=== PATIENT | female | born 1935 | race Caucasian/White ===

== ENCOUNTER → 2019-09-11 14:39 | Outpatient (BNVA) | payer MEDICARE, SELFPAY | PROVIDERS: PCP Specialist; Visit Provider Specialist | DX: S72.091A Other fracture of head and neck of right femur, initial encounter for closed fracture (principal); X58.XXXA Exposure to other specified factors, initial encounter | CPT/HCPCS: 73502 ==

== ENCOUNTER 2022-08-14 08:24 | Inpatient (IN) | payer MEDICARE, MEDICAID, SELFPAY ==
[2022-08-14] VITALS (14 sets, daily range): BP systolic 114–132; BP diastolic 48–111; PULSE 81–136; RESP 16–23; TEMP 36.3–36.6; O2SAT 94–100
--- NOTE | 2022-08-14 08:28 | ECG_ITS ---
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: : 1935 Requested By: Shadia Galdamez Order Number: [id number] Dahlia MD: Scott Rock Measurements Intervals [place] Rate: 128 P: 0 [place]: 0 QRS: 35 QRSD: 104 T: -12 QT: 302 QTc: 441 Interpretive Statements Baseline artifact probable sinus tachycardia INCOMPLETE RIGHT BUNDLE BRANCH BLOCK [90+ ms QRS DURATION, TERMINAL R IN V1/V2, 40+ ms S IN I/aVL/V4/V5/V6] ST DEPRESSION [0.05+ mV ST DEPRESSION] Compared to ECG 07/05/2019 08:32:24 Incomplete right bundle-branch block now present ST (T wave) deviation now present Heart rate increased from 109 Electronically Signed On 08-14-2022 15:09:13 SAMPLE FINISHER by Scott Rock [id number]
--- NOTE | 2022-08-14 08:29 | XRR_ITS ---
PROCEDURE INFORMATION: Exam: XR Chest Exam date and time: 08/14/2022 8:51 AM Age: 87 years old Clinical indication: Shortness of breath; Additional info: SOB TECHNIQUE: Imaging protocol: Radiologic exam of the chest. Views: 1 view. COMPARISON: CR XR chest 1V [id number] 07/04/2019 9:03 PM FINDINGS: Lungs: There are bilateral pulmonary interstitial changes which are most likely chronic fibrosis. There is no focal airspace consolidation. Pleural spaces: Unremarkable. No pleural effusion. No pneumothorax. Heart/Mediastinum: Heart is not enlarged. The mitral annulus is calcified. Bones/joints: Unremarkable. XR/XR chest 1V portable [id number] IMPRESSION: Pulmonary fibrosis. No acute abnormality.
--- NOTE | 2022-08-14 08:30 | W.ED.SOB ---
HPI - SOB/Dyspnea General: Chief Complaint: Shortness of Breath/Dyspnea Stated Complaint: SOB Time Seen by Provider: 08/14/22 08:24 Source: patient and EMS Mode of arrival: EMS Limitations: no limitations History of Present Illness: HPI Narrative: 87-year-old female is [facility] with shortness of breath cough and fever. Patient overnight at the [facility] had a temperature 100.5 he also states that her room air sats were in the 70s she is on 3 L currently she states she does not wear oxygen at baseline she does have a productive cough and rales here afebrile here she denies any pain Associated symptoms: Reports fever(s); Deny abdominal pain, chest pain, nausea or vomiting Review of Systems Const: Reports: fever(s) Eyes: Denies: blurry vision or eye discomfort ENMT: Denies: throat pain or dental pain Card: Denies: chest pain Resp: Reports: dyspnea and productive cough GI: Denies: abdominal pain, nausea, vomiting or diarrhea : Denies: dysuria Musc: Denies: neck pain or back pain Skin/Breast: Denies: rash Neuro: Denies: headache(s) Psych: Denies: depression Pal/Lymph: Denies: easy bruising All/Imm: Denies: urticaria PFSH ED PFSH: Social History Smoking and tobacco status: never smoked Alcohol intake: never Physical Exam Const: COMMON NORMALS: patient oriented x3 GENERAL APPEARANCE: ill appearing HENMT: COMMON NORMALS: normocephalic and atraumatic HEAD & SCALP: normocephalic and atraumatic Eye: COMMON NORMALS: Equal, round and reactive pupils present and EOMs intact bilaterally PUPIL: Yes Equal, round and reactive pupils present Neck/C-Spine: COMMON NORMALS: full ROM and supple Chest: COMMONS NORMALS: normal inspection of the chest and normal palpation of entire chest wall Resp: COMMON NORMALS: No retractions and No use of accessory muscles AUSCULTATION: rales Cardio: COMMON NORMALS: regular rate, regular rhythm and No murmurs present (Cardio) RATE: regular rate RHYTHM: regular rhythm GI: COMMON NORMALS: Normal to inspection, nondistended, normoactive bowel sounds present, Soft to palpation, non-tender and no masses PALPATION: Yes Soft to palpation Extremity: COMMON NORMALS: normal to inspection and full ROM Neuro: COMMON NORMALS: patient oriented x3, moves all extremities and no focal motor deficits Psych: COMMON NORMALS: mental status grossly normal, Normal thought process present and cooperative THOUGHT PROCESS: Normal thought process present Skin: COMMON NORMALS: no rashes or lesions noted and no wounds GENERAL SKIN EXAM: no rashes or lesions noted Course Vital Signs: Vital signs: Vital Signs Temperature 97.4 F L 08/14/22 08:24 Pulse Rate 119 H 08/14/22 09:30 Respiratory Rate 22 H 08/14/22 09:12 Blood Pressure 124/68 08/14/22 09:12 Pulse Oximetry 98 08/14/22 09:30 Oxygen Delivery Me thod 08/14/22 09:30 Oxygen Flow Rate 3 08/14/22 09:30 MDM - SOB/Dyspnea Medical Decision Making Patient presents with cough fever hypoxia likely pneumonia patient started on IV antibiotics patient is also A. fib with RVR is currently on a Cardizem drip her blood pressures been normal spoke to the hospitalist and will admit at this time. Lab Data 08/14/22 09:30 08/14/22 09:30 Labs/Radiology: Radiology Impressions Chest X-Ray 08/14/22 08:29 IMPRESSION: Pulmonary fibrosis. No acute abnormality. Laboratory Results WBC 21.9 10^3/uL (4.0-10.0) H 08/14/22 09:30 RBC 5.42 10^6/uL (4.1-5.3) H 08/14/22 09:30 Hgb 11.9 g/dL (11.5-15.3) 08/14/22 09:30 Hct 41.3 % (37.0-47.0) 08/14/22 09:30 MCV 76.2 fl (81-99) L 08/14/22 09:30 MCH 22.0 pg (28.0-34.0) L 08/14/22 09:30 MCHC 28.8 g/dL (30.0-36.0) L 08/14/22 09:30 RDW 16.9 % (12.1-15.1) H 08/14/22 09:30 Plt Count 382 10^3/cmm (130-400) 08/14/22 09:30 MPV 11.0 fL (7.4-10.4) H 08/14/22 09:30 Neut % (Auto) 86.4 % 08/14/22 09:30 Lymph % (Auto) 7.8 % 08/14/22 09:30 Fergus % (Auto) 3.9 % 08/14/22 09:30 Eos % (Auto) 0.5 % 08/14/22 09:30 Baso % (Auto) 0.3 % 08/14/22 09:30 Neut # (Auto) 18.94 10^3/uL (1.8-7.7) H 08/14/22 09:30 Lymph # (Auto) 1.7 10^3/uL (0.8-4.8) 08/14/22 09:30 Fergus # (Auto) 0.9 10^3/uL (0.2-0.9) 08/14/22 09:30 Eos # (Auto) 0.1 10^3/uL (0.0-0.8) 08/14/22 09:30 Baso # (Auto) 0.1 10^3/uL (0.0-0.1) 08/14/22 09:30 Nucleated RBC % (auto) 0 % 08/14/22 09:30 Nucleated RBCs # 0.0 /100WBC 08/14/22 09:30 D-Dimer 4.99 ug/mIFEU (0-0.59) H 08/14/22 09:30 Specimen Type Arterial 08/14/22 08:46 Sample Site Radial, left 08/14/22 08:46 ABG pH 7.42 (7.35-7.45) 08/14/22 08:46 ABG pCO2 35.6 mmHg (35-45) 08/14/22 08:46 ABG pO2 87.7 mmHg (80.0-100.0) 08/14/22 08:46 ABG HCO3 23.0 mmol/L (22-26) 08/14/22 08:46 ABG Base Excess -1.2 mmol/L (-2.0-2.0) 08/14/22 08:46 Shane Test Pos 08/14/22 08:46 Hematocrit 34.8 % (37-47) L 08/14/22 08:46 Hgb O2 Saturation 96.3 % (95-100) 08/14/22 08:46 Carboxyhemoglobin 1.0 %THgb (0.4-20.1) 08/14/22 08:46 Methemoglobin 0.6 % (0.4-1.5) 08/14/22 08:46 Total Hemoglobin 11.4 g/dL (12-16) L 08/14/22 08:46 O2 Delivery Device Nc 08/14/22 08:46 O2 Liters/Min 2.0 % 08/14/22 08:46 FiO2 28.0 % 08/14/22 08:46 Buttermaker Continuous Churn ID Cak 08/14/22 08:46 Sodium 135 mmol/L (136-145) L 08/14/22 09:30 Potassium 3.5 mmol/L (3.5-5.1) 08/14/22 09:30 Chloride 97 mmol/L (98-107) L 08/14/22 09:30 Carbon Dioxide 22 mmol/L (22-29) 08/14/22 09:30 Anion Gap 19.5 (5-19) H 08/14/22 09:30 BUN 30 mg/dL (8-23) H 08/14/22 09:30 Creatinine 0.8 mg/dL (0.5-0.9) 08/14/22 09:30 GFR Calculation Not Reportable 08/14/22 09:30 Glucose 121 mg/dL (65-115) H 08/14/22 09:30 Calculated Osmolality 287 mOsm/kg (285-295) 08/14/22 09:30 Lactic Acid 1.8 mmol/L (0.5-2.2) 08/14/22 09:30 Calcium 9.2 mg/dL (8.5-10.5) 08/14/22 09:30 Total Bilirubin 0.5 mg/dL (0.15-1.2) 08/14/22 09:30 AST 25 U/L (0-32) 08/14/22 09:30 ALT 16 U/L (0-33) 08/14/22 09:30 Alkaline Phosphatase 151 U/L (35-105) H 08/14/22 09:30 Troponin T Baseline 27 ng/L (0-10) H 08/14/22 09:30 NT-Pro-B Natriuret Pep 1153 pg/mL (0-450) H 08/14/22 09:30 Total Protein 8.1 g/dL (6.6-8.7) 08/14/22 09:30 Albumin 3.1 g/dL (3.5-5.2) L 12 09:30 Globulin 5.0 g/dL (1.3-4.6) H 12 09:30 Coronavirus 229E (PCR) Not detected (NOT DETECT) 08/14/22 08:35 Influenza Type A Ag negative (Negative) 08/14/22 08:35 Influenza Type B Ag negative (Negative) 08/14/22 08:35 SARS-CoV-2 (PCR) Not detected (NOT DETECT) 08/14/22 08:35 EKG Data EKG 1: I personally reviewed and interpreted this EKG as follows: EKG Interpretation Date: 08/14/22 EKG interpretation time: 08:35 Interpretation: atrial flutter hr [address] or t wave abnormalities qrs 104 qtc 378 Critical Care Time Critical Care Time: Critical Care Time: Yes Total Critical Care Time: 40 Attestation: The high probability of a clinically significant, sudden or life threatening deterioration of the patient's resp/cv system(s) required my full and direct attention, intervention and personal management. The critical care time is as shown. This time is in addition to time spent performing any reported procedures but includes the following: [x] Data and vital sign review and interpretation [x] Patient assessment, examination and intervention [x] Documentation [x] Medication orders and management Discharge Plan Discharge Patient Disposition: Admitted As Inpatient Admit Provider: Filiberto Galvan Clinical Impression: Community acquired pneumonia, Atrial fibrillation with RVR Condition: Stable Coding Level of Care Code ED Quality Control Expert for Chg Fwd Exam Comprehensive
[2022-08-14] MEDS: ipratropium-albuterol 3 mL Neb INHALATION (08:47)
[2022-08-14 08:57] LABS: ABG PCO2 35.6 mmHg (35-45); ABG PH Result 7.42 (7.35-7.45); Arterial Blood Gas Hematocrit 34.8 % (37-47); Base Excess ABG -1.2 mmol/L (-2.0-2.0); Blood Gas Allen Test Pos; Blood Gas Operator Identificat CAK; Blood Gas Sample Site Radial, left; Blood Gas Sample Type Arterial; HGB O2 Sat 96.3 % (95-100); Methemoglobin 0.6 % (0.4-1.5); Oxygen Device NC; PO2 ABG 87.7 mmHg (80.0-100.0); Total Hemoglobin 11.4 g/dL (12-16)
[2022-08-14] MEDS: sodium chloride 0.9% 1,000 ML 999 ML IV (09:30)
[2022-08-14] MEDS: dilTIAZem 5 mg/mL SDV 5 mL 10 MG IVP (09:31)
[2022-08-14 09:47] LABS: Basophils # 0.1 10^3/uL (0.0-0.1); Basophils % 0.3 %; Eosinophils # 0.1 10^3/uL (0.0-0.8); Eosinophils % 0.5 %; Hematocrit 41.3 % (37.0-47.0); Hemoglobin 11.9 g/dL (11.5-15.3); Lymphocytes # 1.7 10^3/uL (0.8-4.8); Lymphocytes % 7.8 %; Mean Corpuscular HGB Conc 28.8 g/dL (30.0-36.0); Mean Corpuscular Volume 76.2 fl (81-99); Monocytes # 0.9 10^3/uL (0.2-0.9); Monocytes % 3.9 %; Neutrophils # 18.94 10^3/uL (1.8-7.7); Neutrophils % 86.4 %; Nucleated Red Blood Cells % 0 %; Platelet Count 382 10^3/cmm (130-400); Red Blood Count 5.42 10^6/uL (4.1-5.3); Red Cell Distribution Width 16.9 % (12.1-15.1); White Blood Count 21.9 10^3/uL (4.0-10.0)
[2022-08-14] MEDS: dilTIAZem 100 MG in sodium chloride 0.9% (add-van) 100 ML 10 MG IV (09:54)
[2022-08-14] MEDS: cefTRIAXone 1,000 MG in sodium chloride 0.9% (plus) 50 ML 100 MG IV (10:14)
[2022-08-14 10:27] LABS: Lactic Sepsis W/Reflex 1.8 mmol/L (0.5-2.2)
[2022-08-14 10:30] LABS: Alanine Aminotransferase 16 U/L (0-33); Albumin Level 3.1 g/dL (3.5-5.2); Alkaline Phosphatase 151 U/L (35-105); Anion Gap 19.5 (5-19); Aspartate Amino Transferase 25 U/L (0-32); Blood Urea Nitrogen 30 mg/dL (8-23); Calcium 9.2 mg/dL (8.5-10.5); Carbon Dioxide 22 mmol/L (22-29); Chloride 97 mmol/L (98-107); Glucose 121 mg/dL (65-115); NT Pro B Type Natriuretic Pept 1153 pg/mL (0-450); Osmolality Calculated 287 mOsm/kg (285-295); Potassium 3.5 mmol/L (3.5-5.1); Sodium 135 mmol/L (136-145); Total Bilirubin 0.5 mg/dL (0.15-1.2); Total Protein 8.1 g/dL (6.6-8.7)
[2022-08-14] MEDS: azithromycin 500 MG in sodium chloride 0.9% 250 ML 250 MG IV (10:44)
[2022-08-14 10:53] LABS: Influenza A by IFA negative (Negative); Influenza B by IFA negative (Negative)
[2022-08-14 11:12] LABS: Adenovirus Not Detected (NOT DETECT); Chlamydia Pneumoniae Not Detected (NOT DETECT); Coronavirus 229E,HKU1,NL63,OC4 Not Detected (NOT DETECT); Human Metapneumovirus Not Detected (NOT DETECT); Human Rhinovirus/Enterovirus Not Detected (NOT DETECT); Influenza A Not Detected (NOT DETECT); Influenza A H1 Not Detected (NOT DETECT); Influenza A H1-2009 Not Detected (NOT DETECT); Influenza A H3 Not Detected (NOT DETECT); Influenza B Not Detected (NOT DETECT); Mycoplasma Pneumoniae Not Detected (NOT DETECT); Parainfluenza Virus Type 1 Not Detected (NOT DETECT); Parainfluenza Virus Type 2 Not Detected (NOT DETECT); Parainfluenza Virus Type 3 Not Detected (NOT DETECT); Parainfluenza Virus Type 4 Not Detected (NOT DETECT); Respiratory Syncytial Virus A Not Detected (NOT DETECT); Respiratory Syncytial Virus B Not Detected (NOT DETECT); SARS-COV-2 Not Detected (NOT DETECT)
--- NOTE | 2022-08-14 11:15 | ECG_ITS ---
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
[2022-08-14 11:32] LABS: D Dimer 4.99 ug/mIFEU (0-0.59); Troponin(5th) Baseline 27 ng/L (0-10)
--- NOTE | 2022-08-14 11:35 | CTR_ITS ---
PROCEDURE INFORMATION: Exam: CTA Chest With Contrast Exam date and time: 08/14/2022 12:55 PM Age: 87 years old Clinical indication: Shortness of breath; Additional info: SOB TECHNIQUE: Imaging protocol: Computed tomographic angiography of the chest with contrast. 3D rendering (Not supervised by radiologist): MIP and/or 3D reconstructed images were created by the technologist. Radiation optimization: All CT scans at this facility use at least one of these dose optimization techniques: automated exposure control; mA and/or kV adjustment per patient size (includes targeted exams where dose is matched to clinical indication); or iterative reconstruction. Contrast material: OMNI 350; Contrast volume: 54 ml; Contrast route: INTRAVENOUS (IV); COMPARISON: CR (CHEST, ) 08/14/2022 8:51 AM RADIATION DOSE METRICS: Total DLP (mGy-cm): 180.19 FINDINGS: Pulmonary arteries: Pulmonary vasculature is adequately opacified without filling defects or other evidence of acute pulmonary embolism. Aorta: Scattered atherosclerotic changes of the thoracic aorta. No aortic aneurysm. Lungs: Diffuse calcification of the tracheobronchial tree likely longstanding. Pleural spaces: Small bilateral pleural effusions with adjacent passive atelectasis containing numerous punctate calcifications the probably longstanding. Additional subpleural consolidative opacities within the mid to upper lung zones and patchy bronchiolitis likely infectious in nature. Heart: Heart is mildly enlarged. Mild calcification of the coronary arteries. Diffuse calcification of mitral annulus. Lymph nodes: Mild indistinct mediastinal lymphadenopathy, nonspecific. Liver: 7 cm hypodense liver mass near the liver dome difficult to further assess. Bones/joints: Solitary large gallstone within the gallbladder that appears mildly distended bony partially visualized. Accentuated kyphotic curvature of the thoracic spine with chronic compression fracture T3 vertebral body. Soft tissues: Unremarkable. CT/CT angio chest PE protcl [id number] IMPRESSION: 1. Negative CT angiogram of the chest. No evidence of acute pulmonary embolism. 2. Patchy bronchi bronchiolitis mid to upper lung zones superimposed on scattered subpleural consolidated opacities possibly inflammatory in nature. 3. Small bibasilar pleural effusions with adjacent passive atelectasis and pulmonary calcifications. 4. 7 cm liver mass difficult to further assess. Recommend follow-up nonemergent CT examination of the liver and abdominal ultrasound for further assessment. 5. Cholelithiasis with mild gallbladder distention which could also be further assessed on ultrasound exam.
--- NOTE | 2022-08-14 11:35 | CTR_ITS ---
PROCEDURE INFORMATION: Exam: CT Head Without Contrast Exam date and time: 08/14/2022 12:52 PM Age: 87 years old Clinical indication: Altered mental status/memory loss; Confusion or disorientation; Additional info: AMS TECHNIQUE: Imaging protocol: Computed tomography of the head without contrast. Radiation optimization: All CT scans at this facility use at least one of these dose optimization techniques: automated exposure control; mA and/or kV adjustment per patient size (includes targeted exams where dose is matched to clinical indication); or iterative reconstruction. COMPARISON: No relevant prior studies available. RADIATION DOSE METRICS: Total DLP (mGy-cm): 1011.28 FINDINGS: Brain: No intracranial hemorrhage, edema or other acute abnormality is seen in the brain. There is generalized chronic atrophy with prominence of the ventricles and sulci. There is a 2 cm dural-based mass over the right frontal lobe which is consistent with a benign meningioma. No significant mass effect or midline shift. Cerebral ventricles: The ventricles are prominent consistent with chronic atrophy. Paranasal sinuses: There is mucosal thickening and a small amount of fluid in the right maxillary sinus consistent with sinusitis. Mastoid air cells: Visualized mastoid air cells are well aerated. Bones/joints: Unremarkable. No acute fracture. Soft tissues: Unremarkable. CT/CT head wo con* [id number] IMPRESSION: No acute intracranial abnormality.
[2022-08-14 11:40] LABS: Troponin 5 2HR 23.58 ng/L (0-10)
[2022-08-14 11:44] LABS: Troponin 5 2HR Delta -3.42 ABS# (0-10)
--- NOTE | 2022-08-14 11:58 | P.HP_ITS ---
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 Currently patient is alert to person, to place, not to time, history taking is a bit difficult as she is confused. Some of the history was obtained from the intermediate. According to patient she feels short of breath, she has a cough, she feels weak, poor appetite. According to intermediate she is a intermediate resident at [facility], she does not ambulate at baseline, she does not have significant medical problems, she has been at [facility] since April, she has been in her regular state of health, yesterday she had told nursing staff she was not feeling well, this morning she had hypoxia O2 sats in the mid 80s, with fevers as high as 100.4, complains of shortness of breath, increased confusion. In the emergency room she was found to have A. fib with RVR, leukocytosis, concerns for pneumonia, hospitalist team was called for admission. Currently no facial droop no slurring of her words, she can follow some commands and squeeze my fingers wiggling her toes, when I asked her about the right eyelid, she tells me she has had this since cataract surgery. Review of Systems Narrative: Confusion Const: Reports: fever(s), fatigue and malaise Card: Denies: chest pain Resp: Reports: dyspnea GI: Denies: abdominal pain Neuro: Reports: confusion Medications/Allergies Home Medications Medication Instructions Recorded Confirmed Last Taken Type No Known Home Medications 09/11/19 08/14/22 Unknown History Allergies Allergy/AdvReac Type Severity Reaction Status Date / Time Penicillins Allergy Unknown Verified 09/11/19 14:35 PFSH Acute PFSH: Medical History (Updated 08/14/22 @ 12:07 by Filiberto Galvan MD) No pertinent past medical history Surgical History (Updated 08/14/22 @ 12:04 by Filiberto Galvan MD) History of cataract surgery Family History (Updated 08/14/22 @ 12:04 by Filiberto Galvan MD) Other CAD (coronary artery disease) Social History (Updated 08/14/22 @ 12:04 by Filiberto Galvan MD) Smoking and tobacco status: never smoked Alcohol intake: never Substance/Drug Use: never Vitals/I&O/Wt Last Vital Signs Temp 97.4 F L 08/14/22 08:24 Pulse 119 H 08/14/22 09:30 Resp 22 H 08/14/22 09:12 BP 124/68 08/14/22 09:12 Pulse Ox 98 08/14/22 09:30 O2 Del Method 08/14/22 09:30 O2 Flow Rate 3 08/14/22 09:30 08/13/22 08/14/22 08/14/22 22:59 06:59 14:59 Intake Total 50 / 50 Balance 50 / 50 Weight last 48 hrs Weight 56.699 kg Physical Exam Const: COMMON NORMALS: no acute distress EXAM LIMITATIONS: altered mental status ORIENTATION/CONSCIOUSNESS: Yes awake, Yes oriented to person, Yes oriented to place and Yes confused; not oriented to time HENMT: COMMON NORMALS: normocephalic HEAD & SCALP: normocephalic Eye: OTHER: Right eyelid droop Bilateral pupils equal round reactive to light Neck/C-Spine: COMMON NORMALS: no JVD Lymph: LYMPHATIC: no lymphadenopathy noted Resp: COMMON NORMALS: normal respiratory effort, No retractions, No use of accessory muscles and clear to auscultation bilaterally AUSCULTATION: crackles and wheezes Cardio: COMMON NORMALS: regular rate, regular rhythm, S1 normal heart sound present and S2 normal heart sound present RATE: regular rate RHYTHM: regular rhythm HEART SOUNDS: S1 normal heart sound present and S2 normal heart sound present GI: COMMON NORMALS: Normal to inspection, nondistended, normoactive bowel sounds present, Soft to palpation, non-tender, no masses and no bruits PALPATION: Yes Soft to palpation and Yes No hepatosplenomegaly present Extremity: NARRATIVE EXTREMITY EXAM: Bilateral calf swelling, tenderness on exam, 1+ pitting edema Neuro: OTHER: Alert to person, to place, not to time, can follow some commands, such as squeezing my fingers, wiggling her toes, other neurologic testing is difficult, is able to smile for me, no facial droop Psych: COMMON NORMALS: mental status grossly normal Data 08/14/22 09:30 08/14/22 09:30 Micro: Microbiology 08/14/22 09:40 Blood Culture - Preliminary Blood SPECIMEN COLLECTED 08/14/22 09:30 Blood Culture - Preliminary Blood SPECIMEN COLLECTED A&P Assessment and plan (1) Atrial fibrillation with RVR: (2) NSTEMI (non-ST elevated myocardial infarction): (3) Acute respiratory failure with hypoxia: (4) Community acquired pneumonia: (5) Acute encephalopathy: (6) Protein calorie malnutrition: (7) Physical deconditioning: Plan Acute hypoxic respiratory failure -Likely related to [facility] pneumonia given leukocytosis, however CRP Pro-Maikel pending -Does have pulmonary fibrosis on chest x-ray, possible exacerbation but no history of this in the past -D-dimer quite elevated at 4.99, complains of calf and calf swelling we will do CT angiogram of the chest to rule out pulmonary embolism -Some component related to A. fib with VR, possible fluid overload Plan -Admit to CSU -Monitor respiratory status -Budesonide, ipratropium -Sputum cultures, blood cultures, urine bacterial antigen -Incentive spirometer, flutter valve -For A. fib with RVR, Cardizem drip with oral Cardizem -Cardiac echo -Heparin drip -Protonix, Carafate -Will consider Lasix based on clinical progress -Heparin for DVT prophylaxis -According to intermediate patient is a DNR, it is difficult for me to get an exact answer for her about her intubation mechanical ventilation status, for now as I do not have a clear answer, as patient is confused, will put on limited resuscitation Acute encephalopathy, TSH, mag, CT of the head A. fib RVR, as above NSTEMI serial EKGs serial troponins telemetry monitoring Acute acquired pneumonia, as above Pulmonary fibrosis seen on chest x-ray, will see with CT angiogram of the chest shows Attestations Medical Necessity Statement*: Patient requires hospitalization, inpatient, greater than 2 midnights for A. fib with RVR, acute hypoxic respiratory failure, acute encephalopathy, NSTEMI Coding Level of Care Code Acute Supervisor Electronic Testing for [facility] Fw Diagnoses Atrial fibrillation with RVR I48.91 NSTEMI (non-ST elevated myocardial infarction) I21.4 Acute respiratory failure with hypoxia J96.01 Community acquired pneumonia J18.9 Acute encephalopathy G93.40 Protein calorie malnutrition E46 Physical deconditioning R53.81
[2022-08-14 12:02] LABS: C Reactive Protein 250.5 mg/L (0.0-4.9)
[2022-08-14 12:06] LABS: Procalcitonin 0.69 ng/mL (0-0.5)
--- NOTE | 2022-08-14 12:21 | USR_ITS ---
PROCEDURE INFORMATION: Exam: US Duplex Lower Extremity Veins, Bilateral Exam date and time: 08/14/2022 8:44 PM Age: 87 years old Clinical indication: Swelling (edema) of limb; Lower extremity, bilateral; Additional info: Dvt TECHNIQUE: Imaging protocol: Real-time Duplex ultrasound of the bilateral extremities with 2-D joshi scale, color Doppler flow and spectral waveform analysis with image documentation. Complete exam focused on the bilateral lower extremity veins. COMPARISON: OT Hip 2-3v RIGHT wwo Pelv* [id number] 07/05/2019 6:06 PM FINDINGS: Right deep veins: Unremarkable. The common femoral, femoral, proximal profunda femoral and popliteal veins are patent without thrombus. Normal Doppler waveforms. Normal compressibility and/or augmentation response. Right superficial veins: Saphenofemoral junction is patent without thrombus. Left deep veins: Unremarkable. The common femoral, femoral, proximal profunda femoral and popliteal veins are patent without thrombus. Normal Doppler waveforms. Normal compressibility and/or augmentation response. Left superficial veins: Saphenofemoral junction is patent without thrombus. Soft tissues: Unremarkable. US/[place] [id number] IMPRESSION: No evidence of deep vein thrombosis.
[2022-08-14 12:34] LABS: INR 1.31 (0.8-1.2)
--- NOTE | 2022-08-14 12:38 | ECG_ITS ---
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
[2022-08-14 12:42] LABS: Lactic Sepsis W/Reflex 1.6 mmol/L (0.5-2.2); Magnesium 1.8 mg/dL (1.7-2.3)
[2022-08-14] MEDS: iohexol 350 mg/mL 500 mL Btl (per mL) IV (13:08)
[2022-08-14 13:09] LABS: Thyroid Stimulating Hormone 0.04 uIU/mL (0.27-4.20)
[2022-08-14 13:12] LABS: Estmated Average Glucose 100; Hemoglobin A1C 5.1 % (4.0-6.0)
--- NOTE | 2022-08-14 13:50 | USR_ITS ---
PROCEDURE INFORMATION: Exam: US Abdomen Complete Exam date and time: 08/14/2022 9:06 PM Age: 87 years old Clinical indication: Abnormal findings; Abnormal radiologic finding of the abdomen; Radiologic exam and body structure: CT chest; Additional info: Liver mass, galbldder stones, cholethiasis TECHNIQUE: Imaging protocol: Real-time ultrasound of the abdomen with image documentation. Complete exam. COMPARISON: CT angio chest PE protcl [id number] 08/14/2022 12:55 PM FINDINGS: Liver: There is limited visualization of the liver due to body habitus and bowel gas. There is a 4.9 x 4.5 x 4.3 cm cyst in the liver. Location is indeterminate based on these images. Gallbladder: There is an echogenic focus at the gallbladder neck suggesting a stone. Sonographic Hammonds sign is negative. The gallbladder is incompletely distended. There is no wall thickening. Biliary ducts: The common bile duct is nondilated measuring 3 mm Pancreas: The pancreas is obscured by bowel gas. Right kidney: The right kidney is normal. No hydronephrosis. Left kidney: The left kidney is unremarkable but poorly visualized. No hydronephrosis. Spleen: The spleen is normal in size. Aorta: Obscured by bowel gas. Inferior vena cava: Obscured by bowel gas. Portal venous: The main portal vein is patent. US/US abdomen complete* [id number] IMPRESSION: 1. Cholelithiasis without other evidence of cholecystitis. 2. Limited exam as above.
[2022-08-14 14:26] LABS: Gamma Glutamyl Transferase 12 U/L (5-36)
[2022-08-14 14:27] LABS: Lipase 8 U/L (13-60)
[2022-08-14 14:33] LABS: Free T4 Free Thyroxine 1.06 ng/dL (0.82-1.77); T3 Free 1.6 PG/ML (2.0-4.4)
[2022-08-14] MEDS: dilTIAZem 30 mg Tablet PO ×2 (15:09→19:32)
[2022-08-14] MEDS: pantoprazole 40 mg SDV IVP (15:09)
[2022-08-14] MEDS: meropenem 1,000 MG in sodium chloride 0.9% (plus) 50 ML 100 MG IV ×2 (15:10→21:43)
[2022-08-14] MEDS: FUROsemide 10 mg/mL SDV 2mL 20 MG IVP (15:11)
[2022-08-14 16:35] LABS: Partial Thromboplastin Time 40.4 SECONDS (23.9-36.7)
[2022-08-14 16:43] LABS: Troponin 5 6HR 27.03 ng/L (0-10)
[2022-08-14 16:47] LABS: Troponin 5 6HR Delta 0.03 ng/L (0-12)
--- NOTE | 2022-08-14 16:59 | ECG_ITS ---
[facility] Test Date: 2022-08-14 Pat Name: Lea Velásquez Department: Room: 112 Gender: Female Manager Client Support: : 1935 Requested By: Filiberto Galvan Order Number: [id number] Dahlia MD: Kyle Rico M.D. Measurements Intervals [place] Rate: 98 P: 47 ME: 184 QRS: 16 QRSD: 84 T: 8 QT: 345 QTc: 441 Interpretive Statements SINUS RHYTHM WITH OCCASIONAL VENTRICULAR PREMATURE COMPLEXES Compared to ECG 08/14/2022 12:38:36 Ventricular premature complex(es) now present Sinus tachycardia no longer present Electronically Signed On 08-15-2022 6:21:26 PHYSICS TECHNICIAN by Kyle Rico M.D. [id number]
[2022-08-14] MEDS: heparin 5,000 unit/mL INJ 1 mL IV (17:44)
[2022-08-14] MEDS: heparin drip 25,000 UNIT/500 ML PREMIX 16 UNIT IV (17:44)
[2022-08-15] VITALS (143 sets, daily range): BP systolic 110–131; BP diastolic 50–62; PULSE 75–110; RESP 15–40; TEMP 36.1–36.8; O2SAT 83–100
[2022-08-15] MEDS: dilTIAZem 30 mg Tablet PO ×4 (00:07→20:45)
[2022-08-15] MEDS: pantoprazole 40 mg SDV IVP (00:07)
[2022-08-15 00:27] LABS: Partial Thromboplastin Time 75.8 SECONDS (23.9-36.7)
[2022-08-15] MEDS: meropenem 1,000 MG in sodium chloride 0.9% (plus) 50 ML 100 MG IV ×3 (05:39→21:17)
--- NOTE | 2022-08-15 06:00 | USCV_ITS ---
Lea Velásquez Age: 87 Gender: F : 1935 Exam Date: 08/15/2022 11:11 Ordering Phys: Filiberto Galvan MD Technologist: [place] [facility] [place]: chf ex BP: 113 / 55 HR: 97 Rhythm: Sinus Technical Quality: Adequate MEASUREMENTS (Male / Female) Normal Values 2D ECHO LV Diastolic Diameter PLAX 2.9 cm 4.2 - 5.9 / 3.9 - 5.3 cm LV Systolic Diameter PLAX 2.4 cm IVS Diastolic Thickness 0.8 cm 0.6 - 1.0 / 0.6 - 0.9 cm IVS Systolic Thickness 1.1 cm LVPW Diastolic Thickness 0.8 cm 0.6 - 1.0 / 0.6 - 0.9 cm LVPW Systolic Thickness 1.1 cm LVOT Diameter 2.0 cm LV Ejection Fraction 2D Teich 26.7 % LV Ejection Fraction MOD 2C 74.9 % LV Ejection Fraction 2C AL 74.8 % LA Diameter 2.9 cm M-MODE Aortic Annulus Diameter 2.7 cm LA Ao Ratio MM 1.2 MV E Point Septal Separation 0.9 cm DOPPLER AV Peak Velocity 244.0 cm/s LVOT Peak Velocity 119.0 cm/s AV Area Cont Eq vti 1.9 cm squared AV Area Cont Eq pk 1.6 cm squared MV Area PHT 5.0 cm squared Mitral E to A Ratio 0.7 MV E' Velocity 59.0 cm/s Mitral E to MV E' Ratio 14.0 Mitral E to LV E' Lateral Ratio 10.6 Mitral E to LV E' Septal Ratio 20.7 TR Peak Velocity 343.0 cm/s TR Peak Gradient 47.1 mmHg TV Peak E Velocity 139.0 cm/s Right Atrial Pressure 3.0 mmHg Pulmonary Artery Systolic Pressu 50.1 mmHg RV Acceleration Time 0.1 s FINDINGS Left Ventricle Left ventricle is normal in size. LV systolic function is normal with EF of 60 to 65%. No regional wall motion abnormalities are seen. Grade 1 diastolic dysfunction. Right Ventricle Normal in size and function Right Atrium Normal in size Left Atrium Normal in size Mitral Valve Mitral valve is thickened. Mild mitral regurgitation. Aortic Valve Structurally normal aortic valve. Mild aortic stenosis with aortic valve area of 1.87 cm squared and mean gradient across aortic valve of 11 mmHg. No significant regurgitation Tricuspid Valve Mild tricuspid regurgitation. RVSP is 45 to 50 mmHg. This is consistent with moderate pulmonary hypertension Pulmonic Valve Not well-visualized Pericardium Normal Aorta Normal in size IVC Not well-visualized. CONCLUSIONS LV systolic function is normal with EF of 60 to 65%. Grade 1 diastolic dysfunction Mitral valve is thickened. Mild mitral regurgitation. Mild aortic stenosis with aortic valve area of 1.87 cm squared and mean gradient across aortic valve of 11 mmHg Mild tricuspid regurgitation. Moderate pulmonary hypertension. No comparison studies are available Kyle Rico MD (Electronically Signed) Final Date: 15 August 2022 20:20 S
[2022-08-15 06:21] LABS: Protein Urine 1+ (Negative); Specific Gravity, Urine 1.015 (1.005-1.030); Urine Appearance Clear (CLEAR); Urine Color Yellow (Yellow); pH Urine 5 (5-7)
[2022-08-15 06:22] LABS: Add Urine Microscopic? YES; Bilirubin Urine Neg (Negative); Blood Urine Neg (Negative); Glucose Urine UA Norm (Normal); Ketones Urine 1+ (Negative); Leukocyte Esterase Urine Negative (Negative); Nitrate Urine Negative (Negative); Urobilinogen Urine 1 mg/dL (Negative)
[2022-08-15 06:24] LABS: Add Urine Culture? No; Amorphous Sediment Urine 1+ /hpf
[2022-08-15 07:10] LABS: Basophils # 0.1 10^3/uL (0.0-0.1); Basophils % 0.3 %; Eosinophils % 0.2 %; Hematocrit 34.5 % (37.0-47.0); Lymphocytes # 1.1 10^3/uL (0.8-4.8); Lymphocytes % 6.2 %; Monocytes # 0.6 10^3/uL (0.2-0.9); Monocytes % 3.3 %; Neutrophils % 87.7 %; Nucleated Red Blood Cells % 0 %; Platelet Count 300 10^3/cmm (130-400); Red Blood Count 4.54 10^6/uL (4.1-5.3); White Blood Count 17.7 10^3/uL (4.0-10.0)
[2022-08-15 07:23] LABS: Partial Thromboplastin Time 46.6 SECONDS (23.9-36.7)
[2022-08-15 07:42] LABS: Anion Gap 15.9 (5-19); Blood Urea Nitrogen 27 mg/dL (8-23); Calcium 8.7 mg/dL (8.5-10.5); Carbon Dioxide 24 mmol/L (22-29); Chloride 105 mmol/L (98-107); Glucose 116 mg/dL (65-115); NT Pro B Type Natriuretic Pept 1308 pg/mL (0-450); Osmolality Calculated 298 mOsm/kg (285-295); Potassium 3.9 mmol/L (3.5-5.1); Sodium 141 mmol/L (136-145)
[2022-08-15] MEDS: budesonide 0.5 mg/2 mL Neb INHALATION ×2 (07:56→20:04)
[2022-08-15] MEDS: ipratropium-albuterol 3 mL Neb INHALATION (07:56)
[2022-08-15] MEDS: azithromycin 500 MG in sodium chloride 0.9% 250 ML 250 MG IV (09:22)
[2022-08-15] MEDS: docusate sodium 100 mg Capsule PO ×2 (09:22→18:34)
--- NOTE | 2022-08-15 12:10 | PC.CHAP ---
Pastoral Care Encounter/Spiritual Assessment Type of Contact [] Declined attendant campground visit [] Patient/Family/Request visit [] Outpatient visit [] Follow-up visit [] Physician referral [] Code/Alert [x] Routine visit [] Staff referral [] Actively dying [] Patient sleeping [] Family support [] [] Out of room [] Palliative care [] [] Receiving care in room [] Pre-surgical visit [] Trauma [] Long length of stay [] ICU visit [] Other: Relational/Emotional Strength [x] Patient feels connected with others/family/visitors/staff [] Distress [] Loneliness/isolation [] Abandonment Spirituality of Patient [x] Person of [place] [] Attends Jainism of their [place] [x] Believes in Prayer [] Reads Bible or Congregational materials [] There are Spiritual issues to be addressed Substation Designer Interventions [x] Prayer [] Active listening [] Non-anxious presence [] Spiritual/emotional support [] Crisis/trauma care [] Spiritual counseling [] Bereavement support [] Provided bereavement packet [] Provided Bible/devotional materials [] Provided toy/stuffed animal, coloring book to patient or family member [] Provided Communion [] Anointing/[place] [] Salvation [x] Completed spiritual assessment [] Other: Impact on Illness or Injury [] Angry [] Fearful [] Anxious [] Often cries [] Exhaustion [] Unable to work [] Unable to attend samaritan [] Unable to walk/stand [] Unable to read [] Unable to drive [] Unable to eat/drink [] Unable to sleep [] Unable to be with family [] Patient intubated [] Other: Summary Time spent with patient
[2022-08-15] MEDS: guaiFENesin 600 mg Tablet PO ×2 (14:28→18:34)
--- NOTE | 2022-08-15 14:49 | PM.PN ---
Subjective Subjective: Patient was seen and examined this morning, complaining of cough, currently has remained afebrile, saturating well on 4 L supplemental oxygen, in sinus rhythm. Medications: Medication Review Details: Generic Name Dose Route Start Last Admin Trade Name Freq PRN Reason Stop Dose Admin Albuterol/Ipratrop ium 3 ml 08/14/22 12:21 08/15/22 07:56 Ipratropium-Albu terol 3 Ml Neb INHALATION 3 ml Q4H PRN Administration SHORTNESS OF [place] TH Budesonide 0.5 mg 08/14/22 20:00 08/15/22 07:56 Budesonide 0.5 M g/2 Ml Neb INHALATION 0.5 mg BID.RESPIRATORY S CH Administration Diltiazem HCl 30 mg 08/14/22 13:00 08/15/22 14:28 Diltiazem 30 Mg Tablet PO 30 mg Q6H CHITO Administration Docusate Sodium 100 mg 08/14/22 18:00 08/15/22 09:22 Docusate Sodium 100 Mg Capsule PO 100 mg BID CHITO Administration Guaifenesin 600 mg 08/15/22 13:30 08/15/22 14:28 Guaifenesin 600 Mg Tablet PO 600 mg BID CHITO Administration Heparin Sodium (Po rcine) 0 unit 08/14/22 12:21 08/14/22 17:44 Heparin 5,000 Un it/Ml Inj 1 Ml IV 2,900 unit PRN PRN Administration Heparin weight-ba se protocol Protocol Heparin Sodium/Sod ium Chloride 25,000 unit in 50 0 mls @ 0 mls/hr 08/14/22 12:21 08/15/22 00:53 Heparin Drip IV 13.23 unit/kg/hr .Q0M CHITO 15 mls/hr Titration Protocol Per Protocol Azithromycin 500 m g/ Sodium 250 mls @ 250 mls /hr 08/15/22 10:00 08/15/22 10:30 Chloride IV Infused Q24H CHITO Infusion Protocol Meropenem 1,000 mg / Sodium 50 mls @ 100 mls/ hr 08/14/22 14:00 08/15/22 14:28 Chloride IV 100 mls/hr Q8H CHITO Administration Diltiazem HCl 50 m g/ Sodium 50 mls @ 0 mls/hr 08/14/22 14:15 08/14/22 22:31 Chloride IV 0 mg/hr .Q0M CHITO 0 mls/hr Titration Protocol Per Protocol Vitals/I&O/Wt Last Vital Signs Temp 97.8 F 08/15/22 11:55 Pulse 99 08/15/22 12:15 Resp 22 H 08/15/22 12:15 BP 131/62 08/15/22 12:15 Pulse Ox 98 08/15/22 12:10 O2 Del Method 08/15/22 08:05 O2 Flow Rate 4 08/15/22 08:05 08/14/22 08/15/22 08/15/22 22:59 06:59 14:59 Intake Total 1708.500 / 2007.500 164.4 / 2172.900 240 / 240 Balance 1708.500 / 2007.500 164.4 / 2172.900 240 / 240 Weight last 48 hrs Weight 56.699 kg Physical Exam HENMT: COMMON NORMALS: normocephalic and atraumatic HEAD & SCALP: normocephalic and atraumatic Eye: GENERAL EYE: appearance normal, both eyes and all related structures Resp: EFFORT & INSPECTION: Yes symmetric chest movement OTHER: Diminished air entry bilaterally, tachypneic, tachycardic, no supplemental oxygen requirement. Cardio: COMMON NORMALS: regular rate, regular rhythm, S1 normal heart sound present, S2 normal heart sound present, No gallops present (Cardio), No murmurs present (Cardio), No rub (Cardio) and Peripheral pulses 2+ throughout RATE: regular rate RHYTHM: regular rhythm HEART SOUNDS: S1 normal heart sound present and S2 normal heart sound present PERIPHERAL PULSES: Peripheral pulses 2+ throughout GI: COMMON NORMALS: Normal to inspection, nondistended, normoactive bowel sounds present, Soft to palpation, non-tender, No hepatosplenomegaly present and no masses AUSCULTATION: Yes normoactive bowel sounds PALPATION: Yes Soft to palpation and Yes No hepatosplenomegaly present RECTAL EXAM: deferred Extremity: COMMON NORMALS: no clubbing, cyanosis or edema and no pedal edema Data 08/15/22 06:50 08/15/22 06:50 Micro: Microbiology 08/14/22 09:30 Blood Culture - Preliminary Blood NEGATIVE TO DATE 08/14/22 09:40 Blood Culture - Preliminary Blood NEGATIVE TO DATE 08/14/22 17:20 Bacterial Antigens - Final Urine,Clean Catch A&P Assessment and plan (1) Atrial fibrillation with RVR: (2) NSTEMI (non-ST elevated myocardial infarction): (3) Acute respiratory failure with hypoxia: (4) Community acquired pneumonia: (5) Acute encephalopathy: (6) Protein calorie malnutrition: (7) Physical deconditioning: (8) Anemia: (9) Low TSH level: (10) Liver mass: (11) Cholelithiasis: Plan 87-year-old female with past medical history of chronic right eyelid drop, 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 Currently she is being managed for: Assessment: Newly diagnosed A. fib with RVR Community-acquired pneumonia Acute hypoxic respiratory failure secondary to pneumonia, A. fib with RVR Acute metabolic encephalopathy secondary to pneumonia hypoxia: Resolved NSTEMI PEM Severe physical deconditioning Low TSH with normal free T4, low free T3 7 cm liver mass Cholelithiasis Plan: CT head without contrast: No acute intracranial pathology CTA chest: Negative for pulmonary embolism,Patchy bronchi bronchiolitis mid to upper lung zones superimposed on scattered subpleural consolidated opacities possibly inflammatory in nature.Small bibasilar pleural effusions with adjacent passive atelectasis and pulmonary calcifications. CT abdomen and pelvis with contrast: Ultrasound abdomen:Cholelithiasis without other evidence of cholecystitis. Lower extremity Doppler vein negative for DVT Blood culture: Negative Urine bacterial antigen panel: Negative COVID PCR negative, influenza negative Sputum gram stain and culture pending MRCA PCR Patient was initially on Cardizem drip: Has been transitioned to p.o. Cardizem, currently in sinus rhythm, on heparin drip. Continue meropenem and azithromycin for now, will narrow antibiotic coverage as needed DuoNebs, Mucinex, Mucomyst, budesonide inhaler Continue with incentive spirometer and flutter valve Continue Protonix CODE STATUS: DNR/DNI Attestations Medical Necessity Statement*: Patient needs to in-hospital for management of pneumonia Time Spent in Patient Care: Greater than 35 minutes (>than 50% of time spent in counselling and/or direct pt care on unit). Coding Level of Care Code Acute Health Services Director for [facility] Fwd Diagnoses Atrial fibrillation with RVR I48.91 NSTEMI (non-ST elevated myocardial infarction) I21.4 Acute respiratory failure with hypoxia J96.01 Community acquired pneumonia J18.9 Acute encephalopathy G93.40 Protein calorie malnutrition E46 Physical deconditioning R53.81 Anemia D64.9 Low TSH level R79.89 Liver mass R16.0 Cholelithiasis K80.20
[2022-08-15 14:54] LABS: Partial Thromboplastin Time 49.7 SECONDS (23.9-36.7)
--- NOTE | 2022-08-15 15:03 | CTR_ITS ---
PROCEDURE INFORMATION: Exam: CT Abdomen And Pelvis With Contrast Exam date and time: 08/15/2022 5:19 PM Age: 87 years old Clinical indication: Condition or disease; Liver condition; Hepatomegaly or mass; Additional info: Liver mass evaluation TECHNIQUE: Imaging protocol: Computed tomography of the abdomen and pelvis with contrast. Radiation optimization: All CT scans at this facility use at least one of these dose optimization techniques: automated exposure control; mA and/or kV adjustment per patient size (includes targeted exams where dose is matched to clinical indication); or iterative reconstruction. Contrast material: OMNIPAQUE 350; Contrast volume: 95 ml; Contrast route: INTRAVENOUS (IV); COMPARISON: US abdomen complete* [id number] 08/14/2022 9:06 PM RADIATION DOSE METRICS: Total DLP (mGy-cm): 869.77 FINDINGS: Lungs: Compared to the prior day chest CT, lung base opacities and effusions are unchanged. See that report. Heart: Severe mitral annular valvular calcification. Diaphragm: Govf-ea-nelthtal right hemidiaphragm elevation. Liver: Multiple hepatic cysts are visualized, which measure up to about 5.7 cm. A few minute hepatic hypodensities too small to characterize. No enhancing hepatic mass is visualized at this time. Borderline hepatomegaly. Gallbladder and bile ducts: Multiple gallstones are seen. Pancreas: Unremarkable with no suspicious mass. No ductal dilation. Spleen: The spleen is not enlarged. No suspicious enhancing mass is noted. Adrenal glands: Normal. No mass. Kidneys and ureters: A few minute left renal cysts measure up to 7 mm. No enhancing renal mass or hydronephrosis noted. Stomach and bowel: The colon is moderately fecal filled. Extensive sigmoid diverticulosis. Mild fecal impaction possible. No high-grade small bowel obstruction, abscess, or free air. No bowel hernia. No focal large or small bowel wall thickening visualized. Appendix: No evidence of appendicitis. Intraperitoneal space: See Stomach and bowel finding. Vasculature: Very severe diffuse atherosclerotic disease. Lymph nodes: No enlarged lymph nodes. Urinary bladder: Unremarkable as visualized. It contains excreted IV contrast. Reproductive: Small right ovarian cyst could be followed up in 6-12 months. Bones/joints: Right hip ORIF. Old-appearing bilateral sacral a La deformity seen on the sagittal reformats. Diffuse osteopenia. Multiple old thoracic and lumbar compressions, most pronounced at L2 and L3. Partially assessed old-appearing bilateral rib deformities as well. Advanced scoliosis. Soft tissues: Slight diffuse anasarca possible. CT/CT abdomen pelvis w con* [id number] IMPRESSION: 1. No small bowel obstruction, abscess, or free air. 2. Extensive cholelithiasis. 3. Hepatic apparent cysts, constipation, and other findings above. No enhancing liver mass is seen. 4. Compared to the prior day CT chest, lung base opacities and effusions are unchanged and should be appropriately followed up. COMMENTS: Consistent with the [employer]'s Incidental Findings Committee white paper (J Am Cuong Radiol 2018): Any incidental renal lesion less than 1 cm or classified as too small to characterize, or any incidental cystic renal lesion characterized as simple-appearing, is likely benign. No follow-up imaging is recommended for these lesions per consensus recommendations based on imaging criteria.
[2022-08-15] MEDS: iohexol 350 mg/mL 500 mL Btl (per mL) PO (17:07)
[2022-08-15] MEDS: iohexol 350 mg/mL 500 mL Btl (per mL) IV (17:08)
[2022-08-15] MEDS: ipratropium 0.5 mg/2.5 mL Neb INHALATION (19:56)
[2022-08-15] MEDS: levalbuterol 0.63 mg/3 mL Neb INHALATION (19:56)
[2022-08-15] MEDS: acetylcysteine 200 mg/mL SDV 4 mL 100 MG INHALATION (19:58)
[2022-08-15 22:47] LABS: Partial Thromboplastin Time 74.4 SECONDS (23.9-36.7)
[2022-08-16] VITALS (148 sets, daily range): BP systolic 106–145; BP diastolic 51–66; PULSE 88–111; RESP 10–35; TEMP 36.4–37.4; O2SAT 67–100
[2022-08-16] MEDS: heparin drip 25,000 UNIT/500 ML PREMIX 17 UNIT IV (00:23)
[2022-08-16] MEDS: acetylcysteine 200 mg/mL SDV 4 mL 100 MG INHALATION ×4 (02:35→19:44)
[2022-08-16] MEDS: ipratropium 0.5 mg/2.5 mL Neb INHALATION ×4 (02:35→19:44)
[2022-08-16] MEDS: levalbuterol 0.63 mg/3 mL Neb INHALATION ×4 (02:35→19:44)
[2022-08-16] MEDS: dilTIAZem 30 mg Tablet PO ×4 (03:27→20:08)
[2022-08-16 04:49] LABS: Basophils # 0.1 10^3/uL (0.0-0.1); Basophils % 0.6 %; Eosinophils # 0.1 10^3/uL (0.0-0.8); Eosinophils % 0.6 %; Hematocrit 34.4 % (37.0-47.0); Lymphocytes # 1.3 10^3/uL (0.8-4.8); Lymphocytes % 8.6 %; Mean Corpuscular HGB Conc 29.1 g/dL (30.0-36.0); Mean Corpuscular Hemoglobin 22.1 pg (28.0-34.0); Mean Corpuscular Volume 75.9 fl (81-99); Monocytes # 0.6 10^3/uL (0.2-0.9); Monocytes % 3.9 %; Neutrophils # 12.32 10^3/uL (1.8-7.7); Neutrophils % 81.7 %; Nucleated Red Blood Cells % 0 %; Platelet Count 341 10^3/cmm (130-400); Red Blood Count 4.53 10^6/uL (4.1-5.3); Red Cell Distribution Width 17.1 % (12.1-15.1); White Blood Count 15.1 10^3/uL (4.0-10.0)
[2022-08-16 05:03] LABS: Partial Thromboplastin Time 57.8 SECONDS (23.9-36.7)
[2022-08-16 05:14] LABS: Alanine Aminotransferase 23 U/L (0-33); Albumin Level 2.5 g/dL (3.5-5.2); Alkaline Phosphatase 124 U/L (35-105); Anion Gap 13.8 (5-19); Aspartate Amino Transferase 43 U/L (0-32); Blood Urea Nitrogen 21 mg/dL (8-23); Calcium 8.9 mg/dL (8.5-10.5); Carbon Dioxide 26 mmol/L (22-29); Chloride 106 mmol/L (98-107); Globulin 4.1 g/dL (1.3-4.6); Glucose 111 mg/dL (65-115); Osmolality Calculated 298 mOsm/kg (285-295); Potassium 3.8 mmol/L (3.5-5.1); Sodium 142 mmol/L (136-145); Total Bilirubin 0.2 mg/dL (0.15-1.2); Total Protein 6.6 g/dL (6.6-8.7)
[2022-08-16] MEDS: meropenem 1,000 MG in sodium chloride 0.9% (plus) 50 ML 100 MG IV ×3 (05:22→21:40)
[2022-08-16] MEDS: budesonide 0.5 mg/2 mL Neb INHALATION ×2 (08:50→19:44)
[2022-08-16] MEDS: pantoprazole 40 mg SDV IVP (09:56)
[2022-08-16] MEDS: azithromycin 500 MG in sodium chloride 0.9% 250 ML 250 MG IV (09:57)
[2022-08-16] MEDS: guaiFENesin 600 mg Tablet PO ×2 (09:58→17:58)
[2022-08-16] MEDS: docusate sodium 100 mg Capsule PO ×2 (09:58→17:58)
--- NOTE | 2022-08-16 15:17 | P.PN_ITS ---
Subjective Subjective: Patient was seen and examined this morning, so far she has remained afebrile,WBC count is trending down. Medications: Medication Review Details: Generic Name Dose Route Start Last Admin Trade Name Jereq PRN Reason Stop Dose Admin Acetylcysteine 100 mg 08/15/22 20:00 08/16/22 14:21 Acetylcysteine 2 00 Mg/Ml Sdv 4 Ml INHALATION 100 mg Q6H.RESP CHITO Administration Budesonide 0.5 mg 08/14/22 20:00 08/16/22 08:50 Budesonide 0.5 M g/2 Ml Neb INHALATION 0.5 mg BID.RESPIRATORY S CH Administration Diltiazem HCl 30 mg 08/15/22 20:50 08/16/22 14:26 Diltiazem 30 Mg Tablet PO 30 mg Q6H CHITO Administration Docusate Sodium 100 mg 08/14/22 18:00 08/16/22 09:58 Docusate Sodium 100 Mg Capsule PO 100 mg BID CHITO Administration Guaifenesin 600 mg 08/15/22 13:30 08/16/22 09:58 Guaifenesin 600 Mg Tablet PO 600 mg BID CHITO Administration Heparin Sodium (Po rcine) 0 unit 08/14/22 12:21 08/14/22 17:44 Heparin 5,000 Un it/Ml Inj 1 Ml IV 2,900 unit PRN PRN Administration Heparin weight-ba se protocol Protocol Azithromycin 500 m g/ Sodium 250 mls @ 250 mls /hr 08/15/22 10:00 08/16/22 09:57 Chloride IV 250 mls/hr Q24H CHITO Administration Protocol Meropenem 1,000 mg / Sodium 50 mls @ 100 mls/ hr 08/14/22 14:00 08/16/22 14:25 Chloride IV 100 mls/hr Q8H CHITO Administration Diltiazem HCl 50 m g/ Sodium 50 mls @ 0 mls/hr 08/14/22 14:15 08/14/22 22:31 Chloride IV 0 mg/hr .Q0M CHITO 0 mls/hr Titration Protocol Per Protocol Ipratropium Bromid e 0.5 mg 08/15/22 20:00 08/16/22 14:21 Ipratropium 0.5 Mg/2.5 Ml Neb INHALATION 0.5 mg Q6H.RESP CHITO Administration Levalbuterol HCl 0.63 mg 12/19/22 20:00 08/16/22 14:21 Levalbuterol 0.6 3 Mg/3 Ml Neb INHALATION 0.63 mg Q6H.RESP CHITO Administration Pantoprazole Sodiu m 40 mg 08/16/22 09:00 08/16/22 09:56 Pantoprazole 40 Mg Sdv IVP 40 mg DAILY CHITO Administration Vitals/I&O/Wt Last Vital Signs Temp 98.6 F 08/16/22 11:50 Pulse 99 08/16/22 14:27 Resp 21 H 08/16/22 14:22 BP 106/51 08/16/22 12:05 Pulse Ox 93 08/16/22 14:27 O2 Del Method 08/16/22 14:27 O2 Flow Rate 2 08/16/22 14:27 08/16/22 08/16/22 08/16/22 06:59 14:59 22:59 Intake Total 402.5 / 992.5 500 / 500 Balance 402.5 / 992.5 500 / 500 Physical Exam HENMT: COMMON NORMALS: normocephalic and atraumatic HEAD & SCALP: normocephalic and atraumatic Eye: GENERAL EYE: appearance normal, both eyes and all related structures Resp: EFFORT & INSPECTION: Yes symmetric chest movement OTHER: Diminished air entry bilaterally, tachypneic, tachycardic, no supplemental oxygen requirement. Cardio: COMMON NORMALS: regular rate, regular rhythm, S1 normal heart sound present, S2 normal heart sound present, No gallops present (Cardio), No murmurs present (Cardio), No rub (Cardio) and Peripheral pulses 2+ throughout RATE: regular rate RHYTHM: regular rhythm HEART SOUNDS: S1 normal heart sound present and S2 normal heart sound present PERIPHERAL PULSES: Peripheral pulses 2+ throughout GI: COMMON NORMALS: Normal to inspection, nondistended, normoactive bowel sounds present, Soft to palpation, non-tender, No hepatosplenomegaly present and no masses AUSCULTATION: Yes normoactive bowel sounds PALPATION: Yes Soft to palpation and Yes No hepatosplenomegaly present RECTAL EXAM: deferred Extremity: COMMON NORMALS: no clubbing, cyanosis or edema and no pedal edema Data 08/16/22 04:26 08/16/22 04:26 Micro: Microbiology 08/15/22 21:45 MRSA Culture - Final Nose 08/15/22 21:25 Gram Stain - Final Sputum - Expectorated Sputum 08/14/22 09:30 Blood Culture - Preliminary Blood NEGATIVE TO DATE 08/14/22 09:40 Blood Culture - Preliminary Blood NEGATIVE TO DATE A&P Assessment and plan (1) Atrial fibrillation with RVR: (2) NSTEMI (non-ST elevated myocardial infarction): (3) Acute respiratory failure with hypoxia: (4) Community acquired pneumonia: (5) Acute encephalopathy: (6) Protein calorie malnutrition: (7) Physical deconditioning: (8) Anemia: (9) Low TSH level: (10) Liver mass: (11) Cholelithiasis: Plan 87-year-old female with past medical history of chronic right eyelid drop, 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 Currently she is being managed for: Assessment: Newly diagnosed A. fib with RVR Community-acquired pneumonia Acute hypoxic respiratory failure secondary to pneumonia, A. fib with RVR Acute metabolic encephalopathy secondary to pneumonia hypoxia: Resolved NSTEMI PEM Severe physical deconditioning Low TSH with normal free T4, low free T3 7 cm liver mass Cholelithiasis Mild mitral regurgitation. Mild aortic stenosis Moderate pulmonary hypertension. Plan: CT head without contrast: No acute intracranial pathology CTA chest: Negative for pulmonary embolism,Patchy bronchi bronchiolitis mid to upper lung zones superimposed on scattered subpleural consolidated opacities possibly inflammatory in nature.Small bibasilar pleural effusions with adjacent passive atelectasis and pulmonary calcifications. CT abdomen and pelvis with contrast:has shown hepatic cyst Ultrasound abdomen:Cholelithiasis without other evidence of cholecystitis. Lower extremity Doppler vein negative for DVT 2D Echo: LV systolic function is normal with EF of 60 to 65%., Grade 1 diastolic dysfunction, Mitral valve is thickened.? Mild mitral regurgitation.Mild aortic stenosis with aortic valve area of? 1.87 cm squared and, ?mean gradient across aortic valve of 11 mmHg,?Mild tricuspid regurgitation.? Moderate pulmonary hypertension. Blood culture: Negative Urine bacterial antigen panel: Negative COVID PCR negative, influenza negative Sputum gram stain and culture pending MRCA PCR Patient was initially on Cardizem drip: Has been transitioned to p.o. Cardizem, currently in sinus rhythm, on heparin drip. Continue meropenem and azithromycin for now, will narrow antibiotic coverage as needed DuoNebs, Mucinex, Mucomyst, budesonide inhaler Continue with incentive spirometer and flutter valve Continue Protonix Plan for today :Will continue wit I.V Abxs for now, will plan to switch to po abxs depending upon the clinical progression. CODE STATUS: DNR/DNI Attestations Medical Necessity Statement*: Patient needs to be in hospital for the management of PNA Coding Level of Care Code Acute Damage Assessor for g Fwd Exam Detailed Diagnoses Atrial fibrillation with RVR I48.91 NSTEMI (non-ST elevated myocardial infarction) I21.4 Acute respiratory failure with hypoxia J96.01 Community acquired pneumonia J18.9 Acute encephalopathy G93.40 Protein calorie malnutrition E46 Physical deconditioning R53.81 Anemia D64.9 Low TSH level R79.89 Liver mass R16.0 Cholelithiasis K80.20
[2022-08-16] MEDS: apixaban 5 mg Tablet PO (21:43)
[2022-08-17] VITALS (15 sets, daily range): BP systolic 127–136; BP diastolic 55–70; PULSE 88–113; RESP 14–24; TEMP 36.7–36.9; O2SAT 96–100
[2022-08-17 02:43] LABS: Basophils # 0.1 10^3/uL (0.0-0.1); Basophils % 0.7 %; Eosinophils # 0.2 10^3/uL (0.0-0.8); Eosinophils % 1.1 %; Hematocrit 32.8 % (37.0-47.0); Hemoglobin 9.3 g/dL (11.5-15.3); Lymphocytes # 1.2 10^3/uL (0.8-4.8); Lymphocytes % 8.7 %; Mean Corpuscular HGB Conc 28.4 g/dL (30.0-36.0); Mean Corpuscular Hemoglobin 21.8 pg (28.0-34.0); Mean Corpuscular Volume 76.8 fl (81-99); Mean Platelet Volume 10.1 fL (7.4-10.4); Monocytes # 0.6 10^3/uL (0.2-0.9); Monocytes % 4.5 %; Neutrophils # 10.43 10^3/uL (1.8-7.7); Neutrophils % 77.8 %; Nucleated Red Blood Cells % 0 %; Platelet Count 345 10^3/cmm (130-400); Red Blood Count 4.27 10^6/uL (4.1-5.3); Red Cell Distribution Width 17.3 % (12.1-15.1); White Blood Count 13.4 10^3/uL (4.0-10.0)
[2022-08-17] MEDS: acetylcysteine 200 mg/mL SDV 4 mL 100 MG INHALATION ×4 (02:57→19:31)
[2022-08-17] MEDS: ipratropium 0.5 mg/2.5 mL Neb INHALATION ×4 (02:57→19:30)
[2022-08-17] MEDS: levalbuterol 0.63 mg/3 mL Neb INHALATION ×4 (02:57→19:30)
[2022-08-17 03:10] LABS: Alanine Aminotransferase 19 U/L (0-33); Albumin Level 2.2 g/dL (3.5-5.2); Alkaline Phosphatase 107 U/L (35-105); Anion Gap 10.5 (5-19); Aspartate Amino Transferase 26 U/L (0-32); Blood Urea Nitrogen 16 mg/dL (8-23); Calcium 8.5 mg/dL (8.5-10.5); Carbon Dioxide 26 mmol/L (22-29); Chloride 107 mmol/L (98-107); Globulin 4.1 g/dL (1.3-4.6); Glucose 119 mg/dL (65-115); Osmolality Calculated 292 mOsm/kg (285-295); Potassium 3.5 mmol/L (3.5-5.1); Sodium 140 mmol/L (136-145); Total Bilirubin 0.2 mg/dL (0.15-1.2); Total Protein 6.3 g/dL (6.6-8.7)
[2022-08-17] MEDS: dilTIAZem 30 mg Tablet PO ×2 (03:13→09:49)
[2022-08-17 05:00] LABS: Slide Review Slide Review Perform
[2022-08-17] MEDS: meropenem 1,000 MG in sodium chloride 0.9% (plus) 50 ML 100 MG IV ×3 (05:55→21:58)
[2022-08-17] MEDS: budesonide 0.5 mg/2 mL Neb INHALATION ×2 (08:39→19:30)
[2022-08-17] MEDS: azithromycin 500 MG in sodium chloride 0.9% 250 ML 250 MG IV (09:49)
[2022-08-17] MEDS: apixaban 5 mg Tablet PO ×2 (09:49→21:17)
[2022-08-17] MEDS: pantoprazole 40 mg SDV IVP (09:50)
[2022-08-17] MEDS: docusate sodium 10 mg/mL (5ml) Liq 100 MG PO ×2 (12:12→18:19)
[2022-08-17] MEDS: guaiFENesin 100 mg/5 mL UDC 10 mL 200 MG PO ×4 (12:12→21:59)
--- NOTE | 2022-08-17 13:40 | P.PN_ITS ---
Subjective Subjective: Patient was seen and examined this morning, extremely drowsy. Medications: Medication Review Details: Generic Name Dose Route Start Last Admin Trade Name Freq PRN Reason Stop Dose Admin Acetylcysteine 100 mg 08/15/22 20:00 08/17/22 08:38 Acetylcysteine 2 00 Mg/Ml Sdv 4 Ml INHALATION 100 mg Q6H.RESP CHITO Administration Apixaban 5 mg 08/16/22 21:00 08/17/22 09:49 Apixaban 5 Mg Ta blet PO 5 mg BID@0900,2100 CHITO Administration Budesonide 0.5 mg 08/14/22 20:00 08/17/22 08:39 Budesonide 0.5 M g/2 Ml Neb INHALATION 0.5 mg BID.RESPIRATORY S CH Administration Diltiazem HCl 30 mg 08/15/22 20:50 08/17/22 09:49 Diltiazem 30 Mg Tablet PO 30 mg Q6H CHITO Administration Docusate Sodium 100 mg 08/17/22 10:30 08/17/22 12:12 Docusate Sodium 10 Mg/Ml (5ml) Liq PO 100 mg BID CHITO Administration Guaifenesin 200 mg 08/17/22 10:00 08/17/22 12:12 Guaifenesin 100 Mg/5 Ml Udc 10 Ml PO 200 mg Q4H CHITO Administration Heparin Sodium (Po rcine) 0 unit 08/14/22 12:21 08/14/22 17:44 Heparin 5,000 Un it/Ml Inj 1 Ml IV 2,900 unit PRN PRN Administration Heparin weight-ba se protocol Protocol Azithromycin 500 m g/ Sodium 250 mls @ 250 mls /hr 08/15/22 10:00 08/17/22 11:07 Chloride IV Infused Q24H CHITO Infusion Protocol Meropenem 1,000 mg / Sodium 50 mls @ 100 mls/ hr 08/14/22 14:00 08/17/22 06:30 Chloride IV Infused Q8H CHITO Infusion Diltiazem HCl 50 m g/ Sodium 50 mls @ 0 mls/hr 08/14/22 14:15 08/14/22 22:31 Chloride IV 0 mg/hr .Q0M CHITO 0 mls/hr Titration Protocol Per Protocol Ipratropium Bromid e 0.5 mg 08/15/22 20:00 08/17/22 08:39 Ipratropium 0.5 Mg/2.5 Ml Neb INHALATION 0.5 mg Q6H.RESP CHITO Administration Levalbuterol HCl 0.63 mg 08/15/22 20:00 08/17/22 08:39 Levalbuterol 0.6 3 Mg/3 Ml Neb INHALATION 0.63 mg Q6H.RESP CHITO Administration Pantoprazole Sodiu m 40 mg 08/16/22 09:00 08/17/22 09:50 Pantoprazole 40 Mg Sdv IVP 40 mg DAILY CHITO Administration Vitals/I&O/Wt Last Vital Signs Temp 98.5 F 08/17/22 06:50 Pulse 98 08/17/22 11:46 Resp 22 H 08/17/22 11:46 BP 129/60 08/17/22 11:46 Pulse Ox 98 08/17/22 11:46 O2 Del Method 08/17/22 08:41 O2 Flow Rate 3 08/17/22 08:41 08/16/22 08/17/22 08/17/22 22:59 06:59 14:59 Intake Total 250 / 1000 50 / 1050 610 / 610 Balance 250 / 1000 50 / 1050 610 / 610 Physical Exam HENMT: COMMON NORMALS: normocephalic and atraumatic HEAD & SCALP: normocephalic and atraumatic Eye: GENERAL EYE: appearance normal, both eyes and all related structures Resp: EFFORT & INSPECTION: Yes symmetric chest movement OTHER: Diminished air entry bilaterally, tachypneic, tachycardic, no supplemental ox ygen requirement. Cardio: COMMON NORMALS: regular rate, regular rhythm, S1 normal heart sound present, S2 normal heart sound present, No gallops present (Cardio), No murmurs present (Cardio), No rub (Cardio) and Peripheral pulses 2+ throughout RATE: regular rate RHYTHM: regular rhythm HEART SOUNDS: S1 normal heart sound present and S2 normal heart sound present PERIPHERAL PULSES: Peripheral pulses 2+ throughout GI: COMMON NORMALS: Normal to inspection, nondistended, normoactive bowel sounds present, Soft to palpation, non-tender, No hepatosplenomegaly present and no masses AUSCULTATION: Yes normoactive bowel sounds PALPATION: Yes Soft to palpation and Yes No hepatosplenomegaly present RECTAL EXAM: deferred Extremity: COMMON NORMALS: no clubbing, cyanosis or edema and no pedal edema Data 08/17/22 02:12 08/17/22 02:12 Micro: Microbiology 08/15/22 21:25 Gram Stain - Final Sputum - Expectorated Sputum Sputum Culture - Preliminary 08/15/22 21:45 MRSA Culture - Final Nose A&P Assessment and plan (1) Atrial fibrillation with RVR: (2) NSTEMI (non-ST elevated myocardial infarction): (3) Acute respiratory failure with hypoxia: (4) Community acquired pneumonia: (5) Acute encephalopathy: (6) Protein calorie malnutrition: (7) Physical deconditioning: (8) Anemia: (9) Low TSH level: (10) Liver mass: (11) Cholelithiasis: Plan 87-year-old female with past medical history of chronic right eyelid drop, 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 Currently she is being managed for: Assessment: Newly diagnosed A. fib with RVR Community-acquired pneumonia Acute hypoxic respiratory failure secondary to pneumonia, A. fib with RVR Acute metabolic encephalopathy secondary to pneumonia hypoxia: Resolved NSTEMI PEM Severe physical deconditioning Low TSH with normal free T4, low free T3 7 cm liver mass Cholelithiasis Mild mitral regurgitation. Mild aortic stenosis Moderate pulmonary hypertension. Plan: CT head without contrast: No acute intracranial pathology CTA chest: Negative for pulmonary embolism,Patchy bronchi bronchiolitis mid to upper lung zones superimposed on scattered subpleural consolidated opacities possibly inflammatory in nature.Small bibasilar pleural effusions with adjacent passive atelectasis and pulmonary calcifications. CT abdomen and pelvis with contrast:has shown hepatic cyst Ultrasound abdomen:Cholelithiasis without other evidence of cholecystitis. Lower extremity Doppler vein negative for DVT 2D Echo: LV systolic function is normal with EF of 60 to 65%., Grade 1 diastolic dysfunction, Mitral valve is thickened.? Mild mitral regurgitation.Mild aortic stenosis with aortic valve area of? 1.87 cm squared and, ?mean gradient across aortic valve of 11 mmHg,?Mild tricuspid regurgitation.? Moderate pulmonary hypertension. Blood culture: Negative Urine bacterial antigen panel: Negative COVID PCR negative, influenza negative Sputum gram stain and culture pending MRCA PCR Patient was initially on Cardizem drip: Has been transitioned to p.o. Cardizem, currently in sinus rhythm, on heparin drip. Continue meropenem and azithromycin for now, will narrow antibiotic coverage as needed DuoNebs, Mucinex, Mucomyst, budesonide inhaler Continue with incentive spirometer and flutter valve Continue Protonix Plan for today :She was transitioned to p.o. Eliquis yesterday evening, H&H has remained stable so far, Will switch Cardizem to long-acting 120 p.o. daily, discontinue azithromycin for now Continue with meropenem for now, will plan to switch to po abxs depending upon the clinical progression. Repeat a.m. chest x-ray ordered for tomorrow morning. CODE STATUS: DNR/DNI Attestations Medical Necessity Statement*: Needs to in hospital for management of pneumonia. Coding Level of Care Code Acute Airworthiness Safety Inspector for [facility] Fwd Exam Detailed Diagnoses Atrial fibrillation with RVR I48.91 NSTEMI (non-ST elevated myocardial infarction) I21.4 Acute respiratory failure with hypoxia J96.01 Community acquired pneumonia J18.9 Acute encephalopathy G93.40 Protein calorie malnutrition E46 Physical deconditioning R53.81 Anemia D64.9 Low TSH level R79.89 Liver mass R16.0 Cholelithiasis K80.20
[2022-08-17] MEDS: dilTIAZem ER (24HR) 120 mg Capsule PO (15:11)
[2022-08-18] VITALS (14 sets, daily range): BP systolic 129–153; BP diastolic 65–76; PULSE 87–113; RESP 14–23; TEMP 36.6–37.1; O2SAT 93–100
[2022-08-18] MEDS: guaiFENesin 100 mg/5 mL UDC 10 mL 200 MG PO ×5 (02:03→17:20)
[2022-08-18] MEDS: acetylcysteine 200 mg/mL SDV 4 mL 100 MG INHALATION ×4 (03:05→22:02)
[2022-08-18] MEDS: levalbuterol 0.63 mg/3 mL Neb INHALATION ×4 (03:06→22:02)
[2022-08-18] MEDS: ipratropium 0.5 mg/2.5 mL Neb INHALATION ×3 (03:06→13:23)
[2022-08-18 04:54] LABS: Basophils % 0.3 %; Eosinophils # 0.3 10^3/uL (0.0-0.8); Eosinophils % 2.7 %; Hematocrit 36.2 % (37.0-47.0); Hemoglobin 10.4 g/dL (11.5-15.3); Lymphocytes # 1.4 10^3/uL (0.8-4.8); Lymphocytes % 12.3 %; Mean Corpuscular HGB Conc 28.7 g/dL (30.0-36.0); Mean Corpuscular Volume 76.7 fl (81-99); Mean Platelet Volume 10.2 fL (7.4-10.4); Monocytes # 0.7 10^3/uL (0.2-0.9); Monocytes % 5.9 %; Neutrophils # 7.36 10^3/uL (1.8-7.7); Neutrophils % 66.7 %; Nucleated Red Blood Cells % 0 %; Platelet Count 336 10^3/cmm (130-400); Red Blood Count 4.72 10^6/uL (4.1-5.3); Red Cell Distribution Width 17.2 % (12.1-15.1)
[2022-08-18 05:18] LABS: Alanine Aminotransferase 19 U/L (0-33); Albumin Level 2.2 g/dL (3.5-5.2); Alkaline Phosphatase 96 U/L (35-105); Anion Gap 11.5 (5-19); Aspartate Amino Transferase 27 U/L (0-32); Blood Urea Nitrogen 13 mg/dL (8-23); Calcium 8.7 mg/dL (8.5-10.5); Carbon Dioxide 28 mmol/L (22-29); Chloride 106 mmol/L (98-107); Glucose 109 mg/dL (65-115); Osmolality Calculated 295 mOsm/kg (285-295); Potassium 3.5 mmol/L (3.5-5.1); Sodium 142 mmol/L (136-145); Total Bilirubin 0.2 mg/dL (0.15-1.2); Total Protein 6.2 g/dL (6.6-8.7)
--- NOTE | 2022-08-18 06:00 | XR_ITS ---
WS: [id number] Exam: XR chest 1V portable [id number] Date/Time of Exam: 08/18/2022 5:26 AM Reason For Exam: pneumonia Comparison 10/15/2021. There is groundglass infiltrate throughout the right lung as well as the mid left lung. This suggest pneumonia. The lungs are fully expanded. Cardiomediastinal silhouette is unremarkable for technique. Calcification of the mitral valve annulus. Probable trace left pleural effusion. At least one recent appearing right rib fracture noted. This may be the right third or fourth rib. Monitoring leads super impose the chest. Degenerative change and levoscoliosis of the T-spine. XR/XR chest 1V portable [id number] IMPRESSION: 1. Groundglass infiltrate throughout the right lung in the mid left lung sugge sting pneumonia. Superimposed chronic interstitial changes are present. 2. Probable trace left pleural effusion. 3. At least one recent appearing right-sided rib fracture is noted probably the third or fourth rib.
[2022-08-18] MEDS: meropenem 1,000 MG in sodium chloride 0.9% (plus) 50 ML 100 MG IV ×3 (06:23→22:58)
[2022-08-18] MEDS: budesonide 0.5 mg/2 mL Neb INHALATION ×2 (08:02→22:02)
[2022-08-18] MEDS: dilTIAZem ER (24HR) 120 mg Capsule PO (09:57)
[2022-08-18] MEDS: apixaban 5 mg Tablet PO ×2 (09:57→20:40)
[2022-08-18] MEDS: pantoprazole 40 mg SDV IVP (09:59)
--- NOTE | 2022-08-18 14:07 | PM.PN ---
Subjective Subjective: Patient was seen and examined this morning, much more alert awake today, was seen sitting in the chair, she was complaining of mild back pain because of prolonged sitting, and wanted to go back to bed. Medications: Medication Review Details: Generic Name Dose Route Start Last Admin Trade Name Freq PRN Reason Stop Dose Admin Acetylcysteine 100 mg 08/15/22 20:00 08/18/22 13:23 Acetylcysteine 2 00 Mg/Ml Sdv 4 Ml INHALATION 100 mg Q6H.RESP CHITO Administration Apixaban 5 mg 08/16/22 21:00 08/18/22 09:57 Apixaban 5 Mg Ta blet PO 5 mg BID@0900,2100 CHITO Administration Budesonide 0.5 mg 08/14/22 20:00 08/18/22 08:02 Budesonide 0.5 M g/2 Ml Neb INHALATION 0.5 mg BID.RESPIRATORY S CH Administration Diltiazem HCl 120 mg 08/17/22 14:00 08/18/22 09:57 Diltiazem Er (24 hr) 120 Mg Capsule PO 120 mg DAILY CHITO Administration Docusate Sodium 100 mg 08/17/22 10:30 08/18/22 12:26 Docusate Sodium 10 Mg/Ml (5ml) Liq PO Not Given BID CHITO Guaifenesin 200 mg 08/17/22 10:00 08/18/22 09:57 Guaifenesin 100 Mg/5 Ml Udc 10 Ml PO 200 mg Q4H CHITO Administration Heparin Sodium (Po rcine) 0 unit 08/14/22 12:21 08/14/22 17:44 Heparin 5,000 Un it/Ml Inj 1 Ml IV 2,900 unit PRN PRN Administration Heparin weight-ba se protocol Protocol Meropenem 1,000 mg / Sodium 50 mls @ 100 mls/ hr 08/14/22 14:00 08/18/22 07:00 Chloride IV Infused Q8H CHITO Infusion Diltiazem HCl 50 m g/ Sodium 50 mls @ 0 mls/hr 08/14/22 14:15 08/14/22 22:31 Chloride IV 0 mg/hr .Q0M CHITO 0 mls/hr Titration Protocol Per Protocol Ipratropium Bromid e 0.5 mg 08/15/22 20:00 08/18/22 13:23 Ipratropium 0.5 Mg/2.5 Ml Neb INHALATION 0.5 mg Q6H.RESP CHITO Administration Levalbuterol HCl 0.63 mg 08/15/22 20:00 08/18/22 13:23 Levalbuterol 0.6 3 Mg/3 Ml Neb INHALATION 0.63 mg Q6H.RESP CHITO Administration Pantoprazole Sodiu m 40 mg 08/16/22 09:00 08/18/22 09:59 Pantoprazole 40 Mg Sdv IVP 40 mg DAILY CHITO Administration Vitals/I&O/Wt Last Vital Signs Temp 98.2 F 08/18/22 11:47 Pulse 104 H 08/18/22 13:36 Resp 18 08/18/22 13:26 BP 129/65 08/18/22 11:47 Pulse Ox 99 08/18/22 13:26 O2 Del Method 08/18/22 13:26 O2 Flow Rate 2 08/18/22 13:26 08/17/22 08/18/22 08/18/22 22:59 06:59 14:59 Intake Total 220 / 830 170 / 170 Balance 220 / 830 170 / 170 Physical Exam HENMT: COMMON NORMALS: normocephalic and atraumatic HEAD & SCALP: normocephalic and atraumatic Eye: GENERAL EYE: appearance normal, both eyes and all related structures Resp: EFFORT & INSPECTION: Yes symmetric chest movement OTHER: Diminished air entry bilaterally Cardio: COMMON NORMALS: regular rate, regular rhythm, S1 normal heart sound present, S2 normal heart sound present, No gallops present (Cardio), No murmurs present (Cardio), No rub (Cardio) and Peripheral pulses 2+ throughout RATE: regular rate RHYTHM: regular rhythm HEART SOUNDS: S1 normal heart sound present and S2 normal heart sound present PERIPHERAL PULSES: Peripheral pulses 2+ throughout GI: COMMON NORMALS: Normal to inspection, nondistended, normoactive bowel sounds present, Soft to palpation, non-tender, No hepatosplenomegaly present and no masses AUSCULTATION: Yes normoactive bowel sounds PALPATION: Yes Soft to palpation and Yes No hepatosplenomegaly present RECTAL EXAM: deferred Extremity: COMMON NORMALS: no clubbing, cyanosis or edema and no pedal edema Data 08/18/22 02:52 08/18/22 02:52 Micro: Microbiology 08/15/22 21:25 Gram Stain - Final Sputum - Expectorated Sputum Sputum Culture - Preliminary A&P Assessment and plan (1) Atrial fibrillation with RVR: (2) NSTEMI (non-ST elevated myocardial infarction): (3) Acute respiratory failure with hypoxia: (4) Community acquired pneumonia: (5) Acute encephalopathy: (6) Protein calorie malnutrition: (7) Physical deconditioning: (8) Anemia: (9) Low TSH level: (10) Liver mass: (11) Cholelithiasis: Plan 87-year-old female with past medical history of chronic right eyelid drop, 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 Currently she is being managed for: Assessment: Newly diagnosed A. fib with RVR Community-acquired pneumonia Acute hypoxic respiratory failure secondary to pneumonia, A. fib with RVR Acute metabolic encephalopathy secondary to pneumonia hypoxia: Resolved NSTEMI PEM Severe physical deconditioning Low TSH with normal free T4, low free T3 7 cm liver mass Cholelithiasis Mild mitral regurgitation. Mild aortic stenosis Moderate pulmonary hypertension. Rib fracture Plan: CT head without contrast: No acute intracranial pathology CTA chest: Negative for pulmonary embolism,Patchy bronchi bronchiolitis mid to upper lung zones superimposed on scattered subpleural consolidated opacities possibly inflammatory in nature.Small bibasilar pleural effusions with adjacent passive atelectasis and pulmonary calcifications. CT abdomen and pelvis with contrast:has shown hepatic cyst Ultrasound abdomen:Cholelithiasis without other evidence of cholecystitis. Lower extremity Doppler vein negative for DVT 2D Echo: LV systolic function is normal with EF of 60 to 65%., Grade 1 diastolic dysfunction, Mitral valve is thickened.? Mild mitral regurgitation.Mild aortic stenosis with aortic valve area of? 1.87 cm squared and, ?mean gradient across aortic valve of 11 mmHg,?Mild tricuspid regurgitation.? Moderate pulmonary hypertension. Blood culture: Negative Urine bacterial antigen panel: Negative COVID PCR negative, influenza negative Sputum gram stain and culture pending MRCA PCR Patient was initially on Cardizem drip: Has been transitioned to p.o. Cardizem, currently in sinus rhythm, was on heparin drip. Continue meropenem and azithromycin for now, will narrow antibiotic coverage as needed DuoNebs, Mucinex, Mucomyst, budesonide inhaler Continue with incentive spirometer and flutter valve Continue Protonix Plan for today : Am Chest x-ray done today has shown: groundglass infiltrate throughout the right lung as well as the mid left lung. Suggestive of pneumonia. Clinically patient has done well so far, white blood cell count is trending down, has been afebrile, saturating well on minimal supplemental oxygen.Will make no specific antibiotic changes, Disposition: Patient is ready to discharge anticipate discharge in next 24-48, given the weather condition CODE STATUS: DNR/DNI Attestations Medical Necessity Statement*: Patient is in hospital for management of pneumonia. Coding Level of Care Code Acute Electronic Gluing Machine Operator for g Fwd Diagnoses Atrial fibrillation with RVR I48.91 NSTEMI (non-ST elevated myocardial infarction) I21.4 Acute respiratory failure with hypoxia J96.01 Community acquired pneumonia J18.9 Acute encephalopathy G93.40 Protein calorie malnutrition E46 Physical deconditioning R53.81 Anemia D64.9 Low TSH level R79.89 Liver mass R16.0 Cholelithiasis K80.20
[2022-08-19] VITALS (7 sets, daily range): BP systolic 144–150; BP diastolic 68–81; PULSE 85–95; RESP 17–85; TEMP 36.6–36.7; O2SAT 99–100
[2022-08-19] MEDS: meropenem 1,000 MG in sodium chloride 0.9% (plus) 50 ML 100 MG IV (06:11)
[2022-08-19] MEDS: levalbuterol 0.63 mg/3 mL Neb INHALATION (07:44)
[2022-08-19] MEDS: budesonide 0.5 mg/2 mL Neb INHALATION (07:44)
[2022-08-19] MEDS: acetylcysteine 200 mg/mL SDV 4 mL 100 MG INHALATION (07:44)
[2022-08-19] MEDS: pantoprazole 40 mg SDV IVP (08:20)
[2022-08-19] MEDS: dilTIAZem ER (24HR) 120 mg Capsule PO (08:20)
[2022-08-19] MEDS: apixaban 5 mg Tablet PO (10:04)
[2022-08-19] MEDS: docusate sodium 10 mg/mL (5ml) Liq 100 MG PO (10:04)
[2022-08-19] MEDS: guaiFENesin 100 mg/5 mL UDC 10 mL 200 MG PO (10:04)
--- NOTE | 2022-08-19 10:05 | PM.DCS ---
Discharge Providers Date of Admission: 08/14/22 11:02 Date of Discharge: August 19, 2022 Attending Provider at Admission: Filiberto Galvan MD Attending Provider at Discharge: Mohsen Nelson MD Diagnoses at Discharge Discharge Diagnosis (1) Atrial fibrillation with RVR: Status: Acute (2) NSTEMI (non-ST elevated myocardial infarction): Status: Acute (3) Acute respiratory failure with hypoxia: Status: Acute (4) Community acquired pneumonia: Status: Acute (5) Acute encephalopathy: Status: Acute (6) Protein calorie malnutrition: Status: Acute (7) Physical deconditioning: Status: Acute (8) Anemia: Status: Acute (9) Low TSH level: Status: Acute (10) Liver mass: Status: Acute (11) Cholelithiasis: Status: Acute Reason for Visit Reason for Visit: SOB Hospital Course Hospital Course 87-year-old female with past medical history of chronic right eyelid drop, 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 fib with RVR, she was kept on Cardizem drip, and was later transitioned to p.o. Cardizem, she converted to sinus rhythm during hospital stay. She was discharged on p.o. Cardizem as well as Eliqui.During the hospital stay she was also managed for community-acquired pneumonia, acute hypoxic respiratory failure secondary to pneumonia A. fib RVR,Acute metabolic encephalopathy secondary to pneumonia hypoxia: Resolved, NSTEMI, PEM,Severe physical deconditioning.CT head without contrast: No acute intracranial pathology CTA chest: Negative for pulmonary embolism,Patchy bronchi bronchiolitis mid to upper lung zones superimposed on scattered subpleural consolidated opacities possibly inflammatory in nature.Small bibasilar pleural effusions with adjacent passive atelectasis and pulmonary calcifications. CT abdomen and pelvis with contrast:has shown hepatic cyst Ultrasound abdomen:Cholelithiasis without other evidence of cholecystitis.Lower extremity Doppler vein negative for DVT 2D Echo: LV systolic function is normal with EF of 60 to 65%., Grade 1 diastolic dysfunction, Mitral valve is thickened.? Mild mitral regurgitation.Mild aortic stenosis with aortic valve area of? 1.87 cm squared and, ?mean gradient across aortic valve of 11 mmHg,?Mild tricuspid regurgitation.? Moderate pulmonary hypertension.Blood culture: Negative,Urine bacterial antigen panel: Negative,COVID PCR negative, influenza negative,Sputum gram stain and culture pending,MRCA PCR.Patient was kept on broad-spectrum antibiotics, DuoNebs, pulmonary toilet, supplemental oxygen as needed, incentive spirometer, flutter valve, to which she responded well, at the time of discharge she was saturating on 2 L oxygen, she was afebrile, alert awake oriented x3, at her baseline mentation, hemodynamically stable. She was discharged on p.o. levofloxacin for additional 5 days, to complete total 10-day course of antibiotic, she was also discharged on budesonide inhaler as well as, Xopenex inhaler.NSTEMI likely type II, in the setting of A. fib with RVR and pneumonia ,patient denied any chest pain, there was no acute ST-T wave changes.There was incidental finding of possible 7 cm liver mass on CTA chest, CT abdomen and pelvis: Reported it as hepatic cyst.she was discharged in stable condition to [facility]. Physical Exam HENMT: COMMON NORMALS: normocephalic and atraumatic HEAD & SCALP: normocephalic and atraumatic Eye: GENERAL EYE: appearance normal, both eyes and all related structures Resp: EFFORT & INSPECTION: Yes symmetric chest movement OTHER: Diminished air entry bilaterally Cardio: COMMON NORMALS: regular rate, regular rhythm, S1 normal heart sound present, S2 normal heart sound present, No gallops present (Cardio), No murmurs present (Cardio), No rub (Cardio) and Peripheral pulses 2+ throughout RATE: regular rate RHYTHM: regular rhythm HEART SOUNDS: S1 normal heart sound present and S2 normal heart sound present PERIPHERAL PULSES: Peripheral pulses 2+ throughout GI: COMMON NORMALS: Normal to inspection, nondistended, normoactive bowel sounds present, Soft to palpation, non-tender, No hepatosplenomegaly present and no masses AUSCULTATION: Yes normoactive bowel sounds PALPATION: Yes Soft to palpation and Yes No hepatosplenomegaly present RECTAL EXAM: deferred Extremity: COMMON NORMALS: no clubbing, cyanosis or edema and no pedal edema Discharge Data Studies Completed and Pending Completed Studies During Hospitalization Category Date Time Status CT abdomen pelvis w con* [id number] Routine Cat Scan 08/15/22 15:[address] angio chest PE protcl [id number] Stat Cat Scan 08/14/22 11:[address] head wo con* [id number] Stat Cat Scan 08/14/22 11:35 Completed XR chest 1V portable [id number] Routine Exams 08/18/22 06:00 Completed XR chest 1V portable [id number] Stat Exams 08/14/22 08:29 [place] [id number] Routine Ultrasound 08/14/22 12:21 Completed CV. echo complete* [id number] Routine Ultrasound 08/15/22 06:00 Completed US abdomen complete* [id number] Routine Ultrasound 08/14/22 13:50 Completed Pending at discharge Category Date Time Status COVID [SARS Covid-2 Antigen] Routine Lab 08/19/22 08:17 Uncollected Radiology Impressions Chest CTA 08/14/22 11:35 IMPRESSION: 1. Negative CT angiogram of the chest. No evidence of acute pulmonary embolism. 2. Patchy bronchi bronchiolitis mid to upper lung zones superimposed on scattered subpleural consolidated opacities possibly inflammatory in nature. 3. Small bibasilar pleural effusions with adjacent passive atelectasis and pulmonary calcifications. 4. 7 cm liver mass difficult to further assess. Recommend follow-up nonemergent CT examination of the liver and abdominal ultrasound for further assessment. 5. Cholelithiasis with mild gallbladder distention which could also be further assessed on ultrasound exam. Head CT 08/14/22 11:35 IMPRESSION: No acute intracranial abnormality. Venous Duplex 08/14/22 12:21 IMPRESSION: No evidence of deep vein thrombosis. Abdomen Ultrasound 08/14/22 13:50 IMPRESSION: 1. Cholelithiasis without other evidence of cholecystitis. 2. Limited exam as above. Abdomen/Pelvis CT 08/15/22 15:03 IMPRESSION: 1. No small bowel obstruction, abscess, or free air. 2. Extensive cholelithiasis. 3. Hepatic apparent cysts, constipation, and other findings above. No enhancing liver mass is seen. 4. Compared to the prior day CT chest, lung base opacities and effusions are unchanged and should be appropriately followed up. COMMENTS: Consistent with the [employer]'s Incidental Findings Committee white paper (J [employer]iol 2018): Any incidental renal lesion less than 1 cm or classified as too small to characterize, or any incidental cystic renal lesion characterized as simple-appearing, is likely benign. No follow-up imaging is recommended for these lesions per consensus recommendations based on imaging criteria. Chest X-Ray 08/18/22 06:00 IMPRESSION: 1. Groundglass infiltrate throughout the right lung in the mid left lung suggesting pneumonia. Superimposed chronic interstitial changes are present. 2. Probable trace left pleural effusion. 3. At least one recent appearing right-sided rib fracture is noted probably the third or fourth rib. Laboratory Results WBC 11.0 10^3/uL (4.0-10.0) H 08/18/22 02:52 RBC 4.72 10^6/uL (4.1-5.3) 08/18/22 02:52 Hgb 10.4 g/dL (11.5-15.3) L 08/18/22 02:52 Hct 36.2 % (37.0-47.0) L 08/18/22 02:52 MCV 76.7 fl (81-99) L 08/18/22 02:52 MCH 22.0 pg (28.0-34.0) L 08/18/22 02:52 MCHC 28.7 g/dL (30.0-36.0) L 08/18/22 02:52 RDW 17.2 % (12.1-15.1) H 08/18/22 02:52 Plt Count 336 10^3/cmm (130-400) 08/18/22 02:52 MPV 10.2 fL (7.4-10.4) 08/18/22 02:52 Neut % (Auto) 66.7 % 08/18/22 02:52 Lymph % (Auto) 12.3 % 08/18/22 02:52 Bland % (Auto) 5.9 % 08/18/22 02:52 Eos % (Auto) 2.7 % 08/18/22 02:52 Baso % (Auto) 0.3 % 08/18/22 02:52 Neut # (Auto) 7.36 10^3/uL (1.8-7.7) 08/18/22 02:52 Lymph # (Auto) 1.4 10^3/uL (0.8-4.8) 08/18/22 02:52 Bland # (Auto) 0.7 10^3/uL (0.2-0.9) 08/18/22 02:52 Eos # (Auto) 0.3 10^3/uL (0.0-0.8) 08/18/22 02:52 Baso # (Auto) 0.0 10^3/uL (0.0-0.1) 08/18/22 02:52 Nucleated RBC % (auto) 0 % 08/18/22 02:52 Nucleated RBCs # 0.0 /100WBC 08/18/22 02:52 PT 16.60 SECONDS (12.1-14.9) H 08/14/22 12:00 INR 1.31 (0.8-1.2) H 08/14/22 12:00 APTT 57.8 SECONDS (23.9-36.7) H 08/16/22 04:26 D-Dimer 4.99 ug/mIFEU (0-0.59) H 08/14/22 09:30 Specimen Type Arterial 08/14/22 08:46 Sample Site Radial, left 08/14/22 08:46 ABG pH 7.42 (7.35-7.45) 08/14/22 08:46 ABG pCO2 35.6 mmHg (35-45) 08/14/22 08:46 ABG pO2 87.7 mmHg (80.0-100.0) 08/14/22 08:46 ABG HCO3 23.0 mmol/L (22-26) 08/14/22 08:46 ABG Base Excess -1.2 mmol/L (-2.0-2.0) 08/14/22 08:46 Shane Test Pos 08/14/22 08:46 Hematocrit 34.8 % (37-47) L 08/14/22 08:46 Hgb O2 Saturation 96.3 % (95-100) 08/14/22 08:46 Carboxyhemoglobin 1.0 %THgb (0.4-20.1) 08/14/22 08:46 Methemoglobin 0.6 % (0.4-1.5) 08/14/22 08:46 Total Hemoglobin 11.4 g/dL (12-16) L 08/14/22 08:46 O2 Delivery Device Nc 08/14/22 08:46 O2 Liters/Min 2.0 % 08/14/22 08:46 FiO2 28.0 % 08/14/22 08:46 Utility Worker [employer] Cak 08/14/22 08:46 Sodium 142 mmol/L (136-145) 08/18/22 02:52 Potassium 3.5 mmol/L (3.5-5.1) 08/18/22 02:52 Chloride 106 mmol/L (98-107) 08/18/22 02:52 Carbon Dioxide 28 mmol/L (22-29) 08/18/22 02:52 Anion Gap 11.5 (5-19) 08/18/22 02:52 BUN 13 mg/dL (8-23) 08/18/22 02:52 Creatinine 0.4 mg/dL (0.5-0.9) L 08/18/22 02:52 GFR Calculation Not Reportable 08/18/22 02:52 Glucose 109 mg/dL (65-115) 08/18/22 02:52 Estimat Average Glucose 100 08/14/22 09:30 Hemoglobin A1c 5.1 % (4.0-6.0) 08/14/22 09:30 Calculated Osmolality 295 mOsm/kg (285-295) 08/18/22 02:52 Lactic Acid 1.6 mmol/L (0.5-2.2) 08/14/22 12:00 Calcium 8.7 mg/dL (8.5-10.5) 08/18/22 02:52 Magnesium 1.8 mg/dL (1.7-2.3) 08/14/22 12:00 Total Bilirubin 0.2 mg/dL (0.15-1.2) 08/18/22 02:52 GGT 12 U/L (5-36) 08/14/22 12:00 AST 27 U/L (0-32) 08/18/22 02:52 ALT 19 U/L (0-33) 08/18/22 02:52 Alkaline Phosphatase 96 U/L (35-105) 08/18/22 02:52 Troponin T Baseline 27 ng/L (0-10) H 08/14/22 09:30 Troponin T 120 Minute 23.58 ng/L (0-10) H 08/14/22 11:14 Delta Troponin T -3.42 ABS# (0-10) L 08/14/22 11:14 Troponin T Hi Sens 6Hr 27.03 ng/L (0-10) H 08/14/22 16:00 Troponin T Hi Sens 6Hr Delta 0.03 ng/L (0-12) 08/14/22 16:00 C-Reactive Protein 250.5 mg/L (0.0-4.9) H 08/14/22 09:30 NT-Pro-B Natriuret Pep 1308 pg/mL (0-450) H 08/15/22 06:50 Total Protein 6.2 g/dL (6.6-8.7) L 08/18/22 02:52 Albumin 2.2 g/dL (3.5-5.2) L 08/18/22 02:52 Globulin 4.0 g/dL (1.3-4.6) 08/18/22 02:52 Lipase 8 U/L (13-60) L 08/14/22 12:00 Procalcitonin 0.69 ng/mL (0-0.5) H 08/14/22 09:30 TSH 0.04 uIU/mL (0.27-4.20) L 08/14/22 12:00 Free T4 1.06 ng/dL (0.82-1.77) 08/14/22 12:00 Free T3 1.6 PG/ML (2.0-4.4) L 08/14/22 12:00 Urine Color Yellow (Yellow) 08/14/22 17:20 Urine Appearance Clear (CLEAR) 08/14/22 17:20 Urine pH 5 (5-7) 08/14/22 17:20 Ur Specific [place] 1.015 (1.005-1.030) 08/14/22 17:20 Urine Protein 1+ (Negative) H 08/14/22 17:20 Urine Glucose (UA) Norm (Normal) 08/14/22 17:20 Urine Ketones 1+ (Negative) H 08/14/22 17:20 Urine Blood Neg (Negative) 08/14/22 17:20 Urine Nitrate Negative (Negative) 08/14/22 17:20 Urine Bilirubin Neg (Negative) 08/14/22 17:20 Urine Urobilinogen 1 mg/dL (Negative) H 08/14/22 17:20 Ur Leukocyte Esterase Negative (Negative) 08/14/22 17:20 Urine RBC None /hpf (0-2) 08/14/22 17:20 Urine WBC None /hpf (0-5) 08/14/22 17:20 Ur Squamous Epith Cells None /hpf (0-5) 08/14/22 17:20 Amorphous Sediment 1+ /hpf 08/14/22 17:20 Urine Bacteria None /hpf (NONE) 08/14/22 17:20 Coronavirus 229E (PCR) Not detected (NOT DETECT) 08/14/22 08:35 Influenza Type A Ag negative (Negative) 08/14/22 08:35 Influenza Type B Ag negative (Negative) 08/14/22 08:35 SARS-CoV-2 (PCR) Not detected (NOT DETECT) 08/14/22 08:35 Vitals Last Vital Signs Temp 98.1 F 08/19/22 04:00 Pulse 95 08/19/22 08:00 Resp 18 08/19/22 08:00 BP 147/81 08/19/22 08:00 Pulse Ox 100 08/19/22 08:00 O2 Del Method 08/19/22 07:48 O2 Flow Rate 2 08/19/22 07:48 FiO2 2 08/19/22 02:00 Discharge Plan Discharge Patient Disposition: Xfer SNF Condition: Stable Prescriptions: New diltiazem HCl 120 mg Capsule,Extended Release 24hr 120 mg PO DAILY 30 Days Qty: 30 2RF Eliquis 5 mg Tablet 5 mg PO BID@0900,2100 30 Days Qty: 60 3RF levofloxacin 750 mg tablet 750 mg PO DAILY 5 Days Qty: 5 0RF Xopenex HFA 45 mcg/actuation HFA aerosol inhaler 1 inh inhalation Q6H PRN (Reason: shortness of breath) Qty: 15 0RF Pulmicort Flexhaler 180 mcg/actuation aerosol powdr breath activated 1 inh inhalation BID Qty: 1 0RF Mucinex 600 mg tablet extended release 12hr 600 mg PO BID Qty: 10 0RF Discharge Orders: Discharge Order (Routine); Ordered 08/19/22 Ordered By: Mohsen Nelson Referrals: [facility] [Outside] Patient Instructions: Opioid Safety Discharge Attestations Time Spent in Discharge Care*: greater than 30 min Quality Metrics Clinical Quality Measures [ No reported AMI, CVA or VTE this stay] Coding Level of Care Code Acute Chg FW DC note Diagnoses Atrial fibrillation with RVR I48.91 NSTEMI (non-ST elevated myocardial infarction) I21.4 Acute respiratory failure with hypoxia J96.01 Community acquired pneumonia J18.9 Acute encephalopathy G93.40 Protein calorie malnutrition E46 Physical deconditioning R53.81 Anemia D64.9 Low TSH level R79.89 Liver mass R16.0 Cholelithiasis K80.20
[2022-08-19 11:19] LABS: SARS Covid-2 Antigen negative (Negative)
--- NOTE | 2022-08-19 12:34 | PC.NURSE ---
Patient was discharged at 1205 pm with [facility] [employer] personnel. IV was removed and intact. Patient was given warmer clothes to put on and wrapped in extra blankets. Instructions and education given to [facility] to take to [facility].
== END 2022-08-19 12:38 | disposition skilled nursing facility (03) | DRG 280 ==
LOC: ER 10:56 → CSU 11:03
PROVIDERS: Admitting Provider Family Medicine; Emergency Provider Emergency Medicine; Visit Provider Internal Medicine
DX: I48.91 Unspecified atrial fibrillation (principal); I21.A1 Myocardial infarction type 2; G93.41 Metabolic encephalopathy; J18.9 Pneumonia, unspecified organism; J96.01 Acute respiratory failure with hypoxia; E44.1 Mild protein-calorie malnutrition; D64.9 Anemia, unspecified; R16.0 Hepatomegaly, not elsewhere classified; K80.20 Calculus of gallbladder without cholecystitis without obstruction; H02.401 Unspecified ptosis of right eyelid; D32.9 Benign neoplasm of meninges, unspecified; J84.10 Pulmonary fibrosis, unspecified; I08.0 Rheumatic disorders of both mitral and aortic valves; I27.20 Pulmonary hypertension, unspecified; Z66 Do not resuscitate; Z68.24 Body mass index [BMI] 24.0-24.9, adult
CPT/HCPCS: 36415; 36600; 70450; 71045; 71275; 74177; 76700; 80048; 80053; 81001; 82805; 82977; 83036; 83605; 83690; 83735; 83880; 84145; 84439; 84443; 84481; 84484; 85025; 85378; 85610; 85730; 86140; 86403; 87040; 87070; 87205; 87426; 87635; 87641; 87804; 92507; 92523; 92526; 92610; 93005; 93306; 93970; 94640; 94664; 96365; 96366; 96367; 96375; 97110; 97163; 97530; 99285; C9113; J0456; J0696; J1644; J1940; J2185; J3490; J7030; J7050; J7608; J7614; J7626; J7644; Q9967

== ENCOUNTER 2022-08-23 16:52 | Emergency (ER) | payer MEDICARE, MEDICAID, SELFPAY ==
[2022-08-23 16:54] VITALS: BP 108/57; PULSE 95; RESP 16; TEMP 36.1; O2SAT 99
--- NOTE | 2022-08-23 17:13 | USR_ITS ---
PROCEDURE INFORMATION: Exam: US Duplex Lower Extremity Arteries Exam date and time: 08/23/2022 5:32 PM Age: 87 years old Clinical indication: Other: Discoloration of toes; Additional info: Arterial insufficiency TECHNIQUE: Imaging protocol: Real-time ultrasound scan of the arteries of the bilateral lower extremities with 2-D joshi scale, color Doppler flow and spectral waveform analysis. Images documented and saved. COMPARISON: [place] [id number] 08/14/2022 8:44 PM FINDINGS: Right external iliac artery: No occlusion or significant stenosis. Normal waveform. Right common femoral artery: No occlusion or significant stenosis. Normal waveform. Right superficial femoral artery: No occlusion or significant stenosis. Normal waveform. Right popliteal artery: No occlusion or significant stenosis. Normal waveform. Right calf/foot arteries: No occlusion or significant stenosis in the posterior tibial artery. Normal waveform. Dorsalis pedis artery is occluded. The Left external iliac artery: No occlusion or significant stenosis. Normal waveform. Left common femoral artery: No occlusion or significant stenosis. Normal waveform. Left superficial femoral artery: No occlusion or significant stenosis. Normal waveform. Left popliteal artery: No occlusion or significant stenosis. Normal waveform. Left calf/foot arteries: No occlusion or significant stenosis in the visualized arteries. Normal waveforms. Dorsalis pedis artery is patent. US/CV arterial duplex [facility] [id number] IMPRESSION: 1. 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 2. No other large artery occlusion or significant stenosis.
--- NOTE | 2022-08-23 17:14 | ED_ITS ---
HPI - Extremity Problem General: Chief complaint: Extremity Problem,Nontraumatic Stated complaint: Lower extremity Time Seen by Provider: 08/23/22 17:07 History of Present Illness: 87-year-old female who is brought in from a local detention facility because of discoloration of her feet. The patient was just recently admitted to the hospital for cellulitis. She is anticoagulated with Eliquis due to a history of atrial fibrillation with RVR. Patient states that they had her legs wrapped until the past couple days. She states she has been sitting with her legs hanging down. Today they became concerned because her feet and lower legs had a purplish discoloration. Patient denies numbness in this area. She denies pain. She states her legs are with her typical level of swollen. Associated symptoms: Deny fever(s) Review of Systems General: Reports: 10 or more systems reviewed and unremarkable except in HPI and below Const: Denies: fever(s), chills or body aches Musc: Reports: extremity swelling and other (discoloration of her feet and legs bilaterally); Denies: extremity pain Neuro: Denies: numbness in extremities PFSH ED PFSH: Medical History (Updated 08/23/22 @ 18:09 by Alejandra Peralta MD) Acute encephalopathy Acute respiratory failure with hypoxia Anemia Atrial fibrillation with RVR Cholelithiasis Community acquired pneumonia Liver mass Low TSH level No pertinent past medical history NSTEMI (non-ST elevated myocardial infarction) Physical deconditioning Protein calorie malnutrition Surgical History (Updated 08/14/22 @ 12:04 by Filiberto Galvan MD) History of cataract surgery Family History (Updated 08/14/22 @ 12:04 by Filiberto Galvan MD) Other CAD (coronary artery disease) Social History (Updated 08/14/22 @ 12:04 by Filiberto Galvan MD) Smoking and tobacco status: never smoked Alcohol intake: never Physical Exam Const: COMMON NORMALS: no acute distress HENMT: OTHER: mucous membranes moist Eye: COMMON NORMALS: conjunctivae normal CONJUNCTIVA: Yes conjunctivae normal Neck/C-Spine: COMMON NORMALS: supple Resp: OTHER: no respiratory distress Cardio: OTHER: normal rate Extremity: OTHER: ecchymosis of the anterior lower tibial area and dorsum of feet bilaterally; feet are cool to the touch, capillary refill 4 to 5 seconds. Pulses are present by Doppler 1+ edema bilaterally. Course ED course: Arterial Doppler has been performed and shows flow in both lower extremities. It is monophasic but there is flow to the feet bilaterally. Suspect that this is dependent bruising. Patient is stable for discharge and return back to the detention. Vital Signs: Vital signs: Vital Signs Temperature 96.9 F L 08/23/22 16:54 Pulse Rate 95 08/23/22 16:54 Respiratory Rate 16 08/23/22 16:54 Blood Pressure 108/57 08/23/22 16:54 Pulse Oximetry 99 08/23/22 16:54 Oxygen Delivery Me thod 08/23/22 16:54 Oxygen Flow Rate 3 08/23/22 16:54 MDM - Extremity (Nontraumatic) Medical Decision Making 87-year-old female currently on Eliquis for atrial fibrillation presents from detention with bruising to her lower extremities bilaterally. Feet are cool to the touch and have pulses only present by Doppler. We will obtain an arterial Doppler to rule out arterial occlusion. I suspect that this may be just dependent ecchymosis from them being wrapped in association to her recent hospitalization for cellulitis and chronic anticoagulation. Imaging Data US Vascular: Radiologist's impression: Impression Per the radio/tv technician shows arterial flow intact to the feet bilaterally. It is monophasic but intact. Discharge Plan Discharge Patient Disposition: [facility] Clinical Impression: Ecchymosis Condition: Stable Discharge Orders: Discharge ED (Routine); Ordered 08/23/22 Ordered By: Alejandra Peralta Discharge Diet: Advance as tolerated Discharge Activity: Resume usual activity Patient Instructions: Leg Edema (ED) Activity Restrictions/Additional Instructions: Keep legs elevated; avoid tight socks / shoes. Return if worsening Coding Level of Care Code ED Business Banker for Chg Fwd Exam Expanded Problem Focused
[2022-08-23 20:02] VITALS: BP 122/69; PULSE 99; RESP 17; O2SAT 96
[2022-08-23 20:59] VITALS: BP 122/69; PULSE 99; RESP 17; O2SAT 96
--- NOTE | 2022-08-24 09:15 | DCPLANNER ---
Addendum entered by Karla Mota 11/08/22 07:55: Patient had a follow up appointment scheduled with heart care - patient did not attend appointment Addendum entered by Karla Mota 09/01/22 15:54: Patient has a follow up appointment scheduled for , October 13, 2022 at 1:[address] Rico at [facility]. Clinic will call patient with appointment information. Original Note: passenger service manager had message to schedule a follow up appointment for patient with cardiology. passenger service manager sent patients information to the front office staff at [facility]. Patients information will be printed and reviewed.
== END 2022-08-23 21:01 ==
PROVIDERS: Emergency Provider Emergency Medicine
DX: R58 Hemorrhage, not elsewhere classified (principal); Z79.01 Long term (current) use of anticoagulants; I25.2 Old myocardial infarction; I48.20 Chronic atrial fibrillation, unspecified
CPT/HCPCS: 93925; 99284